=== PATIENT | female | born 1985 | race Caucasian/White ===

== ENCOUNTER 2020-03-25 00:10 | Emergency (ER) | payer MEDICAID, SELFPAY ==
--- NOTE | ~2020-03-25 | CT_ITS ---
EXAMINATIONS: CT HEAD WITHOUT CONTRAST AND CT CERVICAL SPINE WITHOUT CONTRAST CLINICAL INFORMATION: Trauma. Head laceration. COMPARISON: None. TECHNIQUE: Contiguous helical images of the brain were obtained without IV contrast. Contiguous helical images of the cervical spine were obtained without IV contrast. Multiplanar reconstructions were performed. DLP: 1224 mGy-cm. FINDINGS: There are no pathologic extra-axial fluid collections. The lateral, third, fourth ventricles are nondilated and concordant with the appearance of the sulci. There is no evidence for acute intraparenchymal hemorrhage. There is cortical and subcortical low-attenuation within the right occipital lobe, best demonstrated on image 31/82. There is associated sulcal effacement. There is neither mass nor mass effect. There is no shift of midline structures. The paranasal sinuses and mastoid air cells are clear. There are no osseous lesions. There is a small subcutaneous soft tissue hematoma overlying the left occipital bone. The cervical vertebra are in normal alignment. Disc heights and vertebral heights are well-preserved. There are no fractures. There is no prevertebral soft tissue swelling. There is no cervical lymphadenopathy. The visualized lung apices are clear. CT/CT cervical spine wo con IMPRESSION: Cortical and subcortical low-attenuation within the right occipital lobe suspicious for an acute or subacute infarction. Consider correlation with MRI for further tissue characterization. The aforementioned was discussed with Dr. Young at 0135 hours. No evidence for acute injury to the cervical spine. Automated exposure control (Care Dose) Adjustment of the mA and/or kv according to patient size (this includes techniques or standardized protocols for targeted exams where dose is matched to indication / reason for exam; i.e. extremities or head).
--- NOTE | 2020-03-25 00:52 | ED.WOUNDLAC ---
HPI - Wound/Laceration General Chief Complaint: Wound/Laceration Stated Complaint: Fall/ Head Lac Time Seen by Provider: 03/25/20 01:02 Source: patient Mode of arrival: ambulatory Limitations: no limitations History of Present Illness HPI narrative: 34-year-old female with past medical history of chronic headaches presents with laceration to the back of her head. Patient was walking into her home up 3 steps, slipped on some ice and hit the back of her head on cement. She is unable to control the bleeding to the back of her head. Onset (ago): hour(s) (Within the hour of arrival) Location: scalp Place: home Patient tetanus UTD: No Context: accidental Associated symptoms: pain and nausea/vomiting Treatments prior to arrival: bandage Related Data Allergies Allergy/AdvReac Type Severity Reaction Status Date / Time No Known Allergies Allergy Verified 03/25/20 01:05 Review of Systems Review of Systems: Constitutional: No Fever, No Chills, positive headache ENT/Mouth: No Ear Pain, No Hoarseness, No sore throat Eyes: No Eye Pain, No Swelling, No Redness, No Foreign Body Cardiovascular: No Chest Pain, No SOB Respiratory: No Cough, No Dyspnea Gastrointestinal: Positive Nausea, No Vomiting, No Diarrhea, No abdominal Pain Genitourinary: No Dysuria, No Hematuria Musculoskeletal: positive joint pain, No Myalgias, No Joint Swelling Skin: Positive laceration to the mid occipital, No rash Neuro: No Weakness, No Numbness, No Paresthesias, No Loss of Consciousness, No Dizziness, No Headache Psych: No Anxiety/Panic, No Depression Heme/Lymph: no easy bruising, no Lymphadenopathy Endocrine: No Polyuria, No Polydipsia Yes all other systems are reviewed and are negative [facility] Past Medical History Attestation statement: The following information was validated with the patient. Source: old records reviewed Social History Social History Advance Directives: No Advance Directives Information Provided: No Physical Exam Vital Signs: Vital Signs: Last Vital Signs Temp 98.9 F 03/25/20 01:06 Pulse 66 03/25/20 01:06 Resp 18 03/25/20 01:06 BP 144/81 H 03/25/20 01:06 Pulse Ox 100 03/25/20 01:06 Body Mass Index 32.9 Appearance: Alert. Oriented X3. Moderate distress. Head: 2 cm laceration to the occipital scalp, 6 cm contusion hematoma noted No Mckinney signs noted. No raccoon eyes noted Eyes: PERRLA. EOMI. Conjunctiva and sclera normal. Eyelids normal. No pain on extraocular movement ENT: TM's Normal. Pharynx normal. Uvula midline. Moist mucous membranes. No trismus noted. No drooling noted. No muffled voice noted. Neck: Normal inspection. Neck supple. No adenopathy. Thyroid Normal. No meningeal signs. No neck mass noted. CVS: Normal heart rate and rhythm. Heart sound normal. No murmurs noted. Pulses equal to all extremities. Respiratory: No respiratory distress. Painless inspiration. Breath sounds normal. No wheezes/rales/rhonchi noted. Chest nontender. No accessory muscle usage noted or decreased air movement noted. Abdomen: Soft and nontender. Bowel sounds normal in all 4 quadrants. No distention noted. No organomegaly noted. No visible injury noted. Back: No CVA tenderness. Full range of motion noted. Skin: Skin warm and dry. Normal skin color. 2 cm scalp laceration to the occipital Extremities: No lower extremity edema. Extremities exhibit normal range of motion. Extremities nontender. Neuro: cranial nerves 2-12 intact, no focal neural deficits, strength 5/5 to all extremities, No motor deficit. No sensory deficit. Reflexes normal. Course Course Course Narrative: 34-year-old female presents with injury sustained from a slip and fall on the ice. Patient taken to CT scan for imaging immediately upon my evaluation. 2 cm lac to the occipital scalp still bleeding, arterial bleed noted. 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 We did staple the wound shut with 5 eric, radiology called noting a right occipital lobe acute versus subacute infarct and radiology suggests MRI. [place] were removed, sutures placed, please see procedure note for full details. Prepped and draped in sterile fashion, patient tolerated procedure well. Call out to Neurology. At 2:[address] Montano call back to discuss this case, stated that he would follow in the morning. Patient is not a tPA candidate. Discussion with patient regarding plan of care, patient stated that she cannot stay overnight that she has no and take care of her children. Patient will be discharged against medical advice. Patient did understand the risks of leaving without proper medical care which include and serious possibly irreversible consequences. Procedures Laceration Laceration 1: Site: scalp Side (If applicable): right Size (cm): 2 Description: linear Depth: involves muscle layer Local Anesthetic: lidocaine 2% and with epi Amount of anesthesia used (mL): 6 Pre-repair: wound explored and irrigated extensively Skin layer closed with: nylon Size (cm): 3-0 Number of sutures: 4 Technique: simple, interrupted MDM - Wound/Laceration MDM Narrative Medical decision making narrative: Subdural hematoma epidural hematoma Differential Diagnosis Differential diagnosis: Likely laceration Medical Records Attestation: I reviewed the patient's medical records. Lab Data Attestation: I reviewed the patient's lab results. Imaging Data CT head neck: Attestation: I personally reviewed and interpreted this imaging study as follows: Radiologist's impression: EXAMINATIONS: CT HEAD WITHOUT CONTRAST AND CT CERVICAL SPINE WITHOUT CONTRAST CLINICAL INFORMATION: Trauma. Head laceration. COMPARISON: None. TECHNIQUE: Contiguous helical images of the brain were obtained without IV contrast. Contiguous helical images of the cervical spine were obtained without IV contrast. Multiplanar reconstructions were performed. DLP: 1224 mGy-cm. FINDINGS: There are no pathologic extra-axial fluid collections. The lateral, third, fourth ventricles are nondilated and concordant with the appearance of the sulci. There is no evidence for acute intraparenchymal hemorrhage. There is cortical and subcortical low-attenuation within the right occipital lobe, best demonstrated on image 31/82. There is associated sulcal effacement. There is neither mass nor mass effect. There is no shift of midline structures. The paranasal sinuses and mastoid air cells are clear. There are no osseous lesions. There is a small subcutaneous soft tissue hematoma overlying the left occipital bone. The cervical vertebra are in normal alignment. Disc heights and vertebral heights are well-preserved. There are no fractures. There is no prevertebral soft tissue swelling. There is no cervical lymphadenopathy. The visualized lung apices are clear. CT/CT head/brain wo con IMPRESSION: Cortical and subcortical low-attenuation within the right occipital lobe suspicious for an acute or subacute infarction. Consider correlation with MRI for further tissue characterization. The aforementioned was discussed with Dr. Young at 0135 hours. No evidence for acute injury to the cervical spine. Automated exposure control (Care Dose) Adjustment of the mA and/or kv according to patient size (this includes techniques or standardized protocols for targeted exams where dose is matched to indication / reason for exam; i.e. extremities or head). Discharge Plan Discharge Clinical Impression: Laceration Stroke Qualifiers: CVA mechanism: other Qualified Code(s): I63.89 - Other cerebral infarction Acute head trauma Qualifiers: Encounter type: initial encounter Qualified Code(s): S09.90XA - Unspecified injury of head, initial encounter Patient Disposition: Left Against Medical Advice Instructions: Laceration (ED), Concussion (ED), Head Injury (ED), Stroke (DC), Head Laceration (ED) Additional Instructions: You were evaluated for laceration to the back of your head. CT scan indicates suspicion of right occipital stroke. Neurologist recommends that you should be admitted to the hospital and have an MRI in the morning. You are leaving against medical advice. You are welcome to return at any time. We strongly urge you to follow medical advice. Thank you for choosing this emergency department for evaluation. Return to the emergency department for any new, concerning, or worsening symptoms. Stand Alone Forms: Against Medical Advice
[2020-03-25 01:06] VITALS: BP 144/81; PULSE 66; RESP 18; TEMP 37.2; O2SAT 100; BMI 32.9
[2020-03-25] MEDS: Morphine Sulfate 4 MG/ML CARTRIDGE IM (01:24)
[2020-03-25] MEDS: Ketorolac Tromethamine 60 MG/2 ML VIAL IM (01:34)
--- NOTE | 2020-03-25 01:40 | PC.NURSE ---
HEMATOMA TO BACK OF HEAD 6.2CM WIDE AT THIS TIME.
[2020-03-25] MEDS: Lidocaine HCl 2%/Epi 1:100,000 20 ML VIAL INFILTRATI (01:49)
--- NOTE | 2020-03-25 01:50 | PC.NURSE ---
WOUND INFILTRATED WITH LIDOCAINE WITH EPI BY RIANA MILLIGAN. PEDRO REMOVED NEEDED PER MRI. RIANA MILLIGAN WILL PLACE SUTURES AFTER PEDRO REMOVED.
[2020-03-25 02:00] VITALS: RESP 18
[2020-03-25 02:42] VITALS: BP 128/76; PULSE 60; RESP 18; TEMP 36.5; O2SAT 100
== END 2020-03-25 03:22 | disposition left against medical advice (07) ==
PROVIDERS: Emergency Provider Emergency Medicine
DX: S01.01XA Laceration without foreign body of scalp, initial encounter (principal); I63.89 Other cerebral infarction; G44.309 Post-traumatic headache, unspecified, not intractable; W00.0XXA Fall on same level due to ice and snow, initial encounter; Y93.29 Activity, other involving ice and snow; Y93.01 Activity, walking, marching and hiking; Y92.9 Unspecified place or not applicable; Y99.9 Unspecified external cause status; Z23 Encounter for immunization
CPT/HCPCS: 12001; 70450; 72125; 90471; 90715; 96372; 99284; J1885; J2270

== ENCOUNTER 2020-03-27 16:16 | Emergency (ER) | payer MEDICAID, SELFPAY ==
--- NOTE | ~2020-03-27 | MR_ITS ---
EXAMINATION: BRAIN MRI WITHOUT CONTRAST CLINICAL INFORMATION: Evaluate for acute versus subacute infarct. COMPARISON: CT scan of the head 03/25/2020. TECHNIQUE: Multiplanar MR imaging of the brain was performed without contrast. FINDINGS: There is no acute territorial infarct. No pathological magnetic susceptibility artifact. Intracranial vascular flow voids are maintained. There is no intracranial mass effect or midline shift. No abnormal extra-axial collection. Lateral and third ventricles are normal. No hydrocephalus. Midline structures including the cervicomedullary junction are normal. No acute bone marrow signal changes. There is no mastoid middle ear effusion. No active paranasal sinus disease. Globes and orbits are symmetric. MR/MR head/brain wo con IMPRESSION: Normal brain MRI.
[2020-03-27 16:21] VITALS: BP 139/75; PULSE 66; RESP 18; TEMP 36.7; O2SAT 99; BMI 34.2
[2020-03-27 17:41] VITALS: BP 109/44; PULSE 55; RESP 18; O2SAT 100
--- NOTE | 2020-03-27 17:46 | ED.GENADULT ---
HPI - General Adult General Chief complaint: General Medical Stated complaint: Head Injury Time Seen by Provider: 03/27/20 17:07 Source: patient Mode of arrival: ambulatory History of Present Illness HPI narrative: 34-year-old female with a recent medical history of a mechanical fall with head trauma S/P posterior scalp laceration, evaluated in our ED on 03/25 presenting to the ED for brain MRI secondary to CT on 03/25 concerning for acute versus subacute infarct. MRI was recommended at that time however patient left AMA. Today patient reports increased/worsening headaches, and nausea. Also reports feeling off balance. Denies new or/recent falls or trauma, visual change/loss, vomiting, numbness, tingling, weakness. Denies taking anticoagulation Onset (ago): day(s) Related Data Allergies Allergy/AdvReac Type Severity Reaction Status Date / Time No Known Allergies Allergy Verified 03/25/20 01:05 Review of Systems Review of Systems: Constitutional: No Weight loss, No Fever Eyes: No Vision Changes Cardiovascular: No Chest Pain, No SOB Respiratory: No Cough Gastrointestinal: + Nausea, No Vomiting, No Abdominal pain Musculoskeletal: No joint pain, No Myalgias, No Joint Swelling Skin: No Skin Lesions, No rash Neuro: No Weakness, No Numbness, No Paresthesias, No Loss of Consciousness, + Headache, +off balance Yes all other systems are reviewed and are negative Neurologic: Denies Abnormal speech present [facility] Past Medical History Attestation statement: The following information was validated with the patient. Social History Social History Smoking Status: Current every day smoker Any prior treatment program specific to substance use: No Advance Directives: No Advance Directives Information Provided: Yes Physical Exam Vital Signs: Vital Signs: Last Vital Signs Temp 98.1 F 03/27/20 16:21 Pulse 55 03/27/20 17:41 Resp 18 03/27/20 17:41 BP 109/44 L 03/27/20 17:41 Pulse Ox 100 03/27/20 17:41 Body Mass Index 34.2 Const: General: cooperative, healthy appearing and comfortable Orientation/consciousness: patient oriented x3 Limitations: no limitations HENMT: Other: + palpable posterior scalp hematoma with sutures intact, tender to palpation Head: Yes scalp tenderness Ears: hearing grossly normal bilaterally General nose exam: Normal external nose present Face and sinus: Yes normal facial exam Eyes: General: appearance normal, both eyes and all related structures Pupils: Equal, round and reactive pupils present EOM: EOMs intact bilaterally Neck: Neck: Yes normal visual inspection, Yes no lymphadenopathy and Yes no meningeal signs Resp: Effort & Inspection: normal respiratory effort Cardio: Rate: regular rate GI: Inspection: Yes normal to inspection Palpation (GI): Soft to palpation Skin: Rashes: no rashes Neuro: General: patient oriented x3, gait normal, tone normal, moves all extremities, no meningeal signs, no focal motor deficits and CN's II-XI intact bilaterally Cranial nerves: Yes Equal, round and reactive pupils present Cognition (Neuro): normal cognition Speech: No Abnormal speech present Gait exam (Neuro): Normal gait present Motor exam (neuro): 5/5 motor strength present throughout and Pronator motor function not present Coordination: [id number] test normal and Romberg test negative Extrem: General: Yes normal to inspection NIH Stroke Scale Internal: Initial- Upon Arrival Level of Consciousness: Alert Level of Consciousness Questions: Answers both questions correctly Level of Consciousness Commands: Performs both tasks correctly Best Gaze: Normal Visual: No visual loss Facial Palsy: Normal Motor Arm (Right): No drift Motor Arm (Left): No drift Motor Leg (Right): No drift Motor Leg (Left): No drift Limb Ataxia: Absent Sensory: Normal Best Language: No aphasia Dysarthia: Normal Extinction and Inattention: No abnormality Score: 0 Course Course Course Narrative: -patient eloped the ED prior to MRI read results - [id number]--called listed number to inform of MRI results without answer MR head/brain wo con IMPRESSION: Normal brain MRI. Medical Decision Making [facility] Narrative Medical decision making narrative: 34-year-old female with a recent medical history of a mechanical fall with head trauma S/P posterior scalp laceration, evaluated in our ED on 03/25 presenting to the ED for brain MRI secondary to CT on 03/25 concerning for acute versus subacute infarct. On exam VSS, ED/well-appearing, no focal neuro deficits, NIHSS= 0. Imaging reviewed from prior visit. Will obtain MRI today Discharge Plan Discharge Clinical Impression: Headache Patient Disposition: Elopement Interventions: ED Discharge Assessment Last Done: 03/27/20 20:45 Discharge Date/Time: 03/27/20 20:45
--- NOTE | 2020-03-27 19:40 | PC.NURSE ---
UPON RETURNING FROM MRI, PATIENT APPEARED VERY ANXIOUS/AGITATED. KIERRA (PROPELLER LAYOUT WORKER) IN TO SEE PATIENT. PT REQUESTING TO LEAVE ED FOR SOME AIR . SECURITY AT BEDSIDE, ESCORTED PATIENT OUT OF ED, AND THEN ESCORTED BACK INTO ED. PT THEN CALLED THE CHARGE NURSE A BITCH. THIS RN ENTERED ROOM, PATIENT REFUSING TO MAKE EYE CONTACT WITH THIS RN, USING CELL PHONE, ASKING FOR WORK EXCUSE NOTE. THIS RN EXPLAINED THAT MRI RESULTS ARE PENDING, AND RESULTS WILL DETERMINE THE PLAN OF CARE FOR EITHER ADMISSION OR DISCHARGE. PATIENT STATED OH NO, I'M NOT STAYING. 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 I JUST THINK I SHOULDN'T BE ALLOWED TO WORK FOR MORE THAN A WEEK BECAUSE OF MY CONCUSSION, AND I WANT MY RESULTS . THIS INFORMATION RELAYED TO THERESA BUNN (PROVIDER). PT OTHERWISE DOES NOT APPEAR TO BE IN ANY ACUTE DISTRESS. WILL CONTINUE TO MONITOR.
== END 2020-03-27 20:45 | disposition left against medical advice (07) ==
PROVIDERS: Emergency Provider Emergency Medicine
DX: R51.9 Headache, unspecified (principal); R11.0 Nausea; F17.200 Nicotine dependence, unspecified, uncomplicated; Z71.6 Tobacco abuse counseling
CPT/HCPCS: 70551; 99284; 99285

== ENCOUNTER 2020-09-08 10:38 | Outpatient (REF) | payer MEDICAID, SELFPAY ==
[2020-09-08 14:35] LABS: CT PCR NOT DETECTED (Not Detect.); NG PCR NOT DETECTED (Not Detect.)
== END 2020-09-08 10:39 | disposition home or self-care (01) ==
LOC: HO.LAB 10:38
PROVIDERS: PCP Nurse Practitioner Primary Care; Visit Provider Obstetrics & Gynecology
DX: O26.891 Other specified pregnancy related conditions, first trimester (principal); A54.9 Gonococcal infection, unspecified; O99.331 Smoking (tobacco) complicating pregnancy, first trimester; O09.511 Supervision of elderly primigravida, first trimester
CPT/HCPCS: 87491; 87591; 99212

== ENCOUNTER 2020-09-11 11:33 | Outpatient (REF) | payer MEDICAID, SELFPAY ==
--- NOTE | ~2020-09-11 | US_ITS ---
EXAMINATION: ULTRASOUND OB LIMITED CLINICAL INFORMATION: Uncertain LMP. COMPARISON: None TECHNIQUE: Multiple limited 2-D grayscale and Doppler ultrasound images of the pelvis were obtained. FINDINGS: There is a single living intrauterine gestation in vertex presentation with a heart rate of 140 beats per minute. The placenta is anterior without previa. The amniotic fluid volume is qualitatively normal. The BPD measures 4.74 cm, head circumference 18.06 cm, abdominal circumference 15.78 cm, femur length 3.30 cm for an estimated average ultrasound age of 20 weeks, 5 days. US/US OB limited IMPRESSION: Single viable intrauterine gestation with estimated average ultrasound age of 20 weeks, 5 days.
== END 2020-09-11 11:34 | disposition home or self-care (01) ==
LOC: HO.HMGCX 11:33
PROVIDERS: PCP Nurse Practitioner Primary Care; Visit Provider Obstetrics & Gynecology
DX: Z34.91 Encounter for supervision of normal pregnancy, unspecified, first trimester (principal)
CPT/HCPCS: 76815

== ENCOUNTER → 2020-09-18 11:30 | Outpatient (BNVA) | payer MEDICAID, SELFPAY | PROVIDERS: PCP Nurse Practitioner Primary Care; Visit Provider Obstetrics & Gynecology ==

== ENCOUNTER 2020-09-19 13:04 | Outpatient (REF) | payer MEDICAID, SELFPAY ==
--- NOTE | ~2020-09-19 | US_ITS ---
EXAMINATION: US OBSTETRICAL CLINICAL INFORMATION: 34-year-old at 21.5 weeks of gestation Insufficient care AMA Screening for anomaly COMPARISON: 09/11/2020 TECHNIQUE: Real-time transabdominal ultrasound was performed using C1-5 megahertz transducer. FINDINGS: A single, active, fetus is seen in vertex presentation. The placenta is posterior without previa, and the amniotic fluid volume is wnl. MEASUREMENTS: 1. Biparietal Diameter: 5.0 cm; 21.2 wks 2. Occipital Frontal Diameter: 6.98 cm 3. Head Circumference: 19.6 cm; 21.6 wks 4. Abdominal Circumference: 16.8 cm; 21.6 wks 5. Femur Length: 3.6 cm; 21.4 wks 6. Humerus Length: 3.5 cm; 22.1 wks 7. Tibia Length: 3.1 cm; 21.3 wks 8. Ulna Length: 3.1 cm; 21.5 wks 9. Lateral ventricle: 0.5 cm 10. Cerebellum: 2.3 cm; 22.4 wks 11. Cisterna Magna: 0.71 cm 12. Nuchal Fold: 5.5 mm 13. Heart Rate: 135 beats per minute Rt ovary: normal Lt ovary: normal Cervical length 2.8 cm on T/A. GESTATIONAL AGE: 1. Established GA: 21.3 wks 2. GA from [facility]: 21.5 wks ESTIMATED DATE OF DELIVERY: 1. Established TOMMY: 01/27/2021 2. TOMMY from [facility]: 01/25/2021 ANATOMY: The visualized anatomy includes but not limited to: 1. Cranium: Normal 2. Intracranial anatomy: cavum septum pellucidi, lateral ventricles, choroid plexus, cerebellum, posterior fossa, third and fourth ventricles. 3. face: orbits, lip/palate, profile, nasal bone 4. Heart: four-chamber view of the heart, ventricular septum, foramen ovale, pulmonary vein, left and right outflow tracts, three-vessel view, 3 vessel trachea view, aortic and ductal arches, situs.. 5. Diaphragm: Normal 6. Abdominal wall: Normal 7. Cord Insertion: Normal 8. Spine: Cervical, thoracic, lumbar, sacral. 9. Stomach: Normal size and shape 10. Right Kidney: Normal 11. Left Kidney: Normal 12. 3 vessel cord: Normal 13. Upper extremity: Open hands, fifth digit. 14. Lower extremity: Tibia, fibula, bilateral feet. 15. Bladder: Normal 16. Genitalia: Male, patient aware US/US OB /maternal detail IMPRESSION: 1. Single, living, intrauterine with appropriate biometry. 2. Normal survey DISCUSSION: I reviewed today's ultrasound findings. We discussed the limitations of ultrasound in diagnosing aneuploidy and other congenital abnormalities. I reviewed the differences between screening test and diagnostic test. Amniocentesis was discussed and declined. She has not yet had the N IPT. She is undecided. She was informed that the baseline incidence of congenital abnormalities is approximately 3-5%. Not all these conditions are diagnosable in utero. RECOMMENDATIONS: Recommend the follow-up in approximately 6 weeks for an interval growth. (Not scheduled) Thank you for allowing me to participate in her care. Total time 30 minutes. The time spent was devoted to counseling the patient about the disease and diagnosis, coordinating care including reviewing her records, pertinent lab data and studies, as well as discussing diagnostic evaluation and workup, plan therapeutic interventions and future disposition of care. This includes any additional research needed to obtain further information in formulating the plan of care of this patient. This note was generated with a voice recognition program. Please excuse any errors which may have been overlooked during my review of this note. Sometimes these errors may affect the content or meaning of a given sentence.
== END 2020-09-19 13:05 | disposition home or self-care (01) ==
LOC: HO.US 13:04
PROVIDERS: Visit Provider Obstetrics & Gynecology
DX: Z36.89 Encounter for other specified antenatal screening (principal); Z36.3 Encounter for antenatal screening for malformations
CPT/HCPCS: 76811

== ENCOUNTER → 2020-10-01 14:10 | Outpatient (BNVA) | payer MEDICAID, SELFPAY | PROVIDERS: PCP Nurse Practitioner Primary Care; Visit Provider Advanced Practice Midwife | DX: O09.522 Supervision of elderly multigravida, second trimester (principal); O09.32 Supervision of pregnancy with insufficient antenatal care, second trimester; O99.342 Other mental disorders complicating pregnancy, second trimester; F41.9 Anxiety disorder, unspecified; O99.332 Smoking (tobacco) complicating pregnancy, second trimester; F17.200 Nicotine dependence, unspecified, uncomplicated; O99.322 Drug use complicating pregnancy, second trimester; F12.90 Cannabis use, unspecified, uncomplicated; Z3A.23 23 weeks gestation of pregnancy | CPT/HCPCS: 99212 ==

== ENCOUNTER 2020-11-20 15:09 | Outpatient (REF) | payer MEDICAID, SELFPAY ==
[2020-11-22 13:44] LABS: CT PCR NOT DETECTED (Not Detect.); NG PCR NOT DETECTED (Not Detect.)
[2020-11-23 14:33] LABS: BV Int Neg Control Negative (Negative); BV Int Pos Control Positive (Positive)
[2020-11-29 09:56] LABS: HPV 16 RNA NOT DETECTED (NOT DETECTED); HPV mRNA E6/E7 rflx Detected (Not Detected)
== END 2020-11-20 15:10 | disposition home or self-care (01) ==
LOC: HO.LAB 15:09
PROVIDERS: Visit Provider Advanced Practice Midwife
DX: O99.323 Drug use complicating pregnancy, third trimester (principal); F11.20 Opioid dependence, uncomplicated; O09.523 Supervision of elderly multigravida, third trimester; Z3A.30 30 weeks gestation of pregnancy; Z11.51 Encounter for screening for human papillomavirus (HPV); Z20.2 Contact with and (suspected) exposure to infections with a predominantly sexual mode of transmission
CPT/HCPCS: 81003; 87480; 87491; 87510; 87591; 87624; 87625; 87660; 88142; 99212

== ENCOUNTER 2020-11-21 16:04 | Outpatient (REF) | payer MEDICAID, SELFPAY ==
[2020-11-21 16:37] LABS: Hematocrit 33.9 % (37-47); Hemoglobin 11.3 g/dl (12.0-16.0); Mean Corpuscular HGB Conc 33.3 g/dl (31.0-35.0); Mean Corpuscular Hemoglobin 28.3 pg (27.0-33.0); Mean Corpuscular Volume 84.8 fL (80-98); Mean Platelet Volume 9.9 fL (9.4-12.3); Platelet Count 328 X10*3/uL (160-400); Red Cell Distribution Width 13.5 % (11.0-16.0); White Blood Count 10.9 X10*3/uL (4.8-10.8)
[2020-11-21 17:18] LABS: Syphilis Screen Nonreactive (Nonreactive)
[2020-11-21 18:22] LABS: Amphetamine Screen Urine Not Detected (Not Detect); Barbiturates, Urine Not Detected (Not Detect); Benzodiazepines Screen Urine Not Detected (Not Detect); Cannabinoid Screen Urine POSITIVE (Not Detect); Cocaine Screen Urine Not Detected (Not Detect); Fentanyl, urine POSITIVE (Not Detect); Opiate Screen Urine Not Detected (Not Detect); Phencyclidine Screen Urine Not Detected (Not Detect)
[2020-11-25 08:53] LABS: HBsAGNum1 0.18 S/CO (0.00-0.99); Hepatitis B Surface Antigen Negative (Negative)
[2020-11-25 08:57] LABS: HIV AB/AG Nonreactive (Nonreactive); HIV Num 1 0.07 S/CO (0.00-0.99); ~HepC Num1 0.07 S/CO (0.00-0.79); ~Hepatitis C Antibody Nonreactive (Nonreactive)
== END 2020-11-21 16:05 | disposition home or self-care (01) ==
LOC: HO.LAB 16:04
PROVIDERS: PCP Nurse Practitioner Primary Care; Visit Provider Advanced Practice Midwife
DX: O09.529 Supervision of elderly multigravida, unspecified trimester (principal)
CPT/HCPCS: 80307; 85027; 86762; 86780; 86787; 86803; 86850; 86900; 86901; 87086; 87340; 87389

== ENCOUNTER 2020-12-05 14:33 | Outpatient (REF) | payer MEDICAID, SELFPAY ==
--- NOTE | ~2020-12-05 | US_ITS ---
EXAMINATION: OBSTETRICAL ULTRASOUND, Follow up HISTORY: 35-year-old at 32.3 weeks of gestation Size less than dates AMA COMPARISON: 09/19/2020 TECHNIQUE: Real time transabdominal imaging with color and M-mode Doppler. PRESENTATION: Vertex PLACENTA LOCATION: Posterior without previa AMNIOTIC FLUID: CT 12 cm MEASUREMENTS: 1. Biparietal Diameter: 7.9 cm; 31.5 wks 2. Head Circumference: 29.97 cm; 33.2 wks 3. Abdominal Circumference: 27.1 cm; 31.2 wks 4. Femur Length: 5.8 cm; 30.3 wks 5. Heart Rate: 122 beats per minute WEIGHT: EFW: 1710 grams (3 lbs 12 oz) -- 10 %. BIOPHYSICAL PROFILE: Motion: 2 Tone: 2 Breathin Amniotic Fluid: 2 Total score: 8/8 UA Doppler: SD 3.2 GESTATIONAL AGE: 1. Established GA: 32.3 wks 2. GA from [facility]: 31.5 wks ESTIMATED DATE OF DELIVERY: 1. Established TOMMY: 01/27/2021 2. TOMMY from [facility]: 02/01/2021 US/US OB velocimetry umbilical ar IMPRESSION: 1. A single active fetus is in vertex presentation. 2. Size equals dates, EFW corresponds to 10th percentile 3. Normal BPP and amniotic fluid volume 4. Normal umbilical artery SD ratio I reviewed today's findings and informed her that the EFW corresponds to approximately 10th percentile for this gestational age. We discussed the limitations of estimating weights. In addition we reviewed the clinical implications of the estimated weight percentile ranking. In general majority of fetuses whose EFW is between 5-10th percentile are constitutionally small fetuses who are growing to their full genetic potential. Suggest an interval growth evaluation in approximately 3 weeks (scheduled). Thank you very much for this referral. Total time 30 minutes. The time spent was devoted to counseling the patient about the disease and diagnosis, coordinating care including reviewing her records, pertinent lab data and studies, as well as discussing diagnostic evaluation and workup, plan therapeutic interventions and future disposition of care. This includes any additional research needed to obtain further information in formulating the plan of care of this patient. This note was generated with a voice recognition program. Please excuse any errors which may have been overlooked during my review of this note. Sometimes these errors may affect the content or meaning of a given sentence.
== END 2020-12-05 14:34 | disposition home or self-care (01) ==
LOC: HO.US 14:33
PROVIDERS: Visit Provider Advanced Practice Midwife
DX: O99.322 Drug use complicating pregnancy, second trimester (principal); Z36.89 Encounter for other specified antenatal screening
CPT/HCPCS: 76816; 76820

== ENCOUNTER → 2020-12-10 14:58 | Outpatient (BNVA) | payer MEDICAID, SELFPAY | PROVIDERS: Visit Provider Advanced Practice Midwife | DX: O09.523 Supervision of elderly multigravida, third trimester (principal); O36.5930 Maternal care for other known or suspected poor fetal growth, third trimester, not applicable or unspecified; O36.0130 Maternal care for anti-D [Rh] antibodies, third trimester, not applicable or unspecified; Z67.91 Unspecified blood type, Rh negative; O09.33 Supervision of pregnancy with insufficient antenatal care, third trimester; O99.323 Drug use complicating pregnancy, third trimester; F12.20 Cannabis dependence, uncomplicated; F11.20 Opioid dependence, uncomplicated; O99.333 Smoking (tobacco) complicating pregnancy, third trimester; F17.210 Nicotine dependence, cigarettes, uncomplicated; Z3A.33 33 weeks gestation of pregnancy; Z79.899 Other long term (current) drug therapy; Z29.13 Encounter for prophylactic Rho(D) immune globulin | CPT/HCPCS: 99212 ==

== ENCOUNTER 2020-12-17 13:44 | Outpatient (REF) | payer MEDICAID, SELFPAY ==
[2020-12-17 14:39] LABS: Amphetamine Screen Urine Not Detected (Not Detect); Barbiturates, Urine Not Detected (Not Detect); Benzodiazepines Screen Urine Not Detected (Not Detect); Cocaine Screen Urine Not Detected (Not Detect); Opiate Screen Urine Not Detected (Not Detect); Phencyclidine Screen Urine Not Detected (Not Detect)
[2020-12-17 15:29] LABS: Hemoglobin 11.1 g/dl (12.0-16.0); Mean Corpuscular HGB Conc 32.6 g/dl (31.0-35.0); Mean Corpuscular Hemoglobin 28.2 pg (27.0-33.0); Mean Corpuscular Volume 86.3 fL (80.0-98.0); Mean Platelet Volume 10.8 fL (9.4-12.3); Platelet Count 249 X10*3/uL (160-400); Red Blood Count 3.94 X10*6/uL (4.20-5.50); Red Cell Distribution Width 13.8 % (11.0-16.0); White Blood Count 8.4 X10*3/uL (4.8-10.8)
[2020-12-17 16:02] LABS: Glucose 1 Hour PP 50gm Dose 71 mg/dL (60-140)
[2020-12-17 16:27] LABS: Syphilis Screen Nonreactive (Nonreactive)
== END 2020-12-17 13:45 | disposition home or self-care (01) ==
LOC: HO.LAB 13:44
PROVIDERS: Visit Provider Advanced Practice Midwife
DX: O36.5990 Maternal care for other known or suspected poor fetal growth, unspecified trimester, not applicable or unspecified (principal); O99.320 Drug use complicating pregnancy, unspecified trimester; F19.90 Other psychoactive substance use, unspecified, uncomplicated; Z3A.00 Weeks of gestation of pregnancy not specified
CPT/HCPCS: 80307; 85027; 86780; 96372

== ENCOUNTER 2020-12-26 14:02 | Outpatient (REF) | payer MEDICAID, SELFPAY ==
--- NOTE | ~2020-12-26 | US_ITS ---
EXAMINATION: OBSTETRICAL ULTRASOUND, Follow up HISTORY: 35-year-old at 35.3 weeks of gestation Size date discrepancy AMA COMPARISON: 12/05/2020 TECHNIQUE: Real time transabdominal imaging with color and M-mode Doppler. PRESENTATION: Vertex PLACENTA LOCATION: Posterior without previa AMNIOTIC FLUID: CT 11.2 cm MEASUREMENTS: 1. Biparietal Diameter: 8.2 cm; 33.1 wks 2. Head Circumference: 31.4 cm; 35.2 wks 3. Abdominal Circumference: 31.1 cm; 35.1 wks 4. Femur Length: 6.4 cm; 33.1 wks 5. Heart Rate: 136 beats per minute WEIGHT: EFW: 2405 grams (5 lbs 5 oz) -- 20 %. BIOPHYSICAL PROFILE: Motion: 2 Tone: 2 Breathin Amniotic Fluid: 2 Total score: 8/8 UA Doppler: SD 2.7. GESTATIONAL AGE: 1. Established GA: 35.3 wks 2. GA from AUA: 34.2 wks ESTIMATED DATE OF DELIVERY: 1. Established TOMMY: 01/27/2021 2. TOMMY from AUA: 02/04/2021 US/US OB follow up IMPRESSION: 1. A single active fetus is in vertex presentation 2. Size equals dates 3. Reassuring BPP 4. Normal SD subumbilical UA I reassured the patient that the growth has been appropriate. In addition the testing is reassuring. A follow-up has been scheduled in 3 weeks for AMA. Thank you very much for this referral. Total time 20 minutes. The time spent was devoted to counseling the patient about the disease and diagnosis, coordinating care including reviewing her records, pertinent lab data and studies, as well as discussing diagnostic evaluation and workup, plan therapeutic interventions and future disposition of care. This includes any additional research needed to obtain further information in formulating the plan of care of this patient. This note was generated with a voice recognition program. Please excuse any errors which may have been overlooked during my review of this note. Sometimes these errors may affect the content or meaning of a given sentence.
--- NOTE | ~2020-12-26 | US_ITS ---
EXAMINATION: OBSTETRICAL ULTRASOUND, Follow up HISTORY: 35-year-old at 35.3 weeks of gestation Size date discrepancy AMA COMPARISON: 12/05/2020 TECHNIQUE: Real time transabdominal imaging with color and M-mode Doppler. PRESENTATION: Vertex PLACENTA LOCATION: Posterior without previa AMNIOTIC FLUID: CT 11.2 cm MEASUREMENTS: 1. Biparietal Diameter: 8.2 cm; 33.1 wks 2. Head Circumference: 31.4 cm; 35.2 wks 3. Abdominal Circumference: 31.1 cm; 35.1 wks 4. Femur Length: 6.4 cm; 33.1 wks 5. Heart Rate: 136 beats per minute WEIGHT: EFW: 2405 grams (5 lbs 5 oz) -- 20 %. BIOPHYSICAL PROFILE: Motion: 2 Tone: 2 Breathin Amniotic Fluid: 2 Total score: 8/8 UA Doppler: SD 2.7. GESTATIONAL AGE: 1. Established GA: 35.3 wks 2. GA from AUA: 34.2 wks ESTIMATED DATE OF DELIVERY: 1. Established TOMMY: 01/27/2021 2. TOMMY from AUA: 02/04/2021 US/US OB velocimetry umbilical ar IMPRESSION: 1. A single active fetus is in vertex presentation 2. Size equals dates 3. Reassuring BPP 4. Normal SD subumbilical UA I reassured the patient that the growth has been appropriate. In addition the testing is reassuring. A follow-up has been scheduled in 3 weeks for AMA. Thank you very much for this referral. Total time 20 minutes. The time spent was devoted to counseling the patient about the disease and diagnosis, coordinating care including reviewing her records, pertinent lab data and studies, as well as discussing diagnostic evaluation and workup, plan therapeutic interventions and future disposition of care. This includes any additional research needed to obtain further information in formulating the plan of care of this patient. This note was generated with a voice recognition program. Please excuse any errors which may have been overlooked during my review of this note. Sometimes these errors may affect the content or meaning of a given sentence.
== END 2020-12-26 14:03 | disposition home or self-care (01) ==
LOC: HO.US 14:02
PROVIDERS: Visit Provider Advanced Practice Midwife
DX: O36.5930 Maternal care for other known or suspected poor fetal growth, third trimester, not applicable or unspecified (principal); O99.323 Drug use complicating pregnancy, third trimester; O36.5990 Maternal care for other known or suspected poor fetal growth, unspecified trimester, not applicable or unspecified; O99.333 Smoking (tobacco) complicating pregnancy, third trimester; F17.200 Nicotine dependence, unspecified, uncomplicated; Z3A.35 35 weeks gestation of pregnancy
CPT/HCPCS: 76816; 76820

== ENCOUNTER 2021-01-05 14:03 | Outpatient (REF) | payer MEDICAID, SELFPAY ==
[2021-01-06 05:32] LABS: CT PCR NOT DETECTED (Not Detect.); NG PCR NOT DETECTED (Not Detect.)
[2021-01-06 09:22] LABS: BV Int Neg Control Negative (Negative); BV Int Pos Control Positive (Positive)
== END 2021-01-05 14:04 | disposition home or self-care (01) ==
LOC: HO.LAB 14:03
PROVIDERS: Visit Provider Advanced Practice Midwife
DX: O36.5930 Maternal care for other known or suspected poor fetal growth, third trimester, not applicable or unspecified (principal); O26.893 Other specified pregnancy related conditions, third trimester; F17.200 Nicotine dependence, unspecified, uncomplicated; Z67.91 Unspecified blood type, Rh negative; Z20.2 Contact with and (suspected) exposure to infections with a predominantly sexual mode of transmission
CPT/HCPCS: 81003; 87081; 87147; 87480; 87491; 87510; 87591; 87660; 99212

== ENCOUNTER 2021-02-11 12:04 | Outpatient (REF) | payer MEDICAID, SELFPAY ==
[2021-02-12 04:52] LABS: CT PCR NOT DETECTED (Not Detect.); NG PCR NOT DETECTED (Not Detect.)
[2021-02-12 09:43] LABS: BV Int Neg Control Negative (Negative); BV Int Pos Control Positive (Positive)
== END 2021-02-11 12:05 | disposition home or self-care (01) ==
LOC: HO.LAB 12:04
PROVIDERS: Visit Provider Advanced Practice Midwife
DX: Z39.2 Encounter for routine postpartum follow-up (principal); Z30.09 Encounter for other general counseling and advice on contraception; R30.0 Dysuria; Z72.0 Tobacco use; N89.8 Other specified noninflammatory disorders of vagina; Z20.2 Contact with and (suspected) exposure to infections with a predominantly sexual mode of transmission
CPT/HCPCS: 81003; 87480; 87491; 87510; 87591; 87660; 99212

== ENCOUNTER 2024-04-09 14:56 | Outpatient (REF) | payer MEDICAID, SELFPAY ==
[2024-04-09 16:10] LABS: MANUAL DIFF FLAG NO
[2024-04-09 16:16] LABS: Basophils Absolute Auto 0.1 X10*3/uL (0.0-0.2); Basophils Percent Auto 1.1 % (0-2); Eosinophils Absolute Auto 0.3 X10*3/uL (0.0-0.4); Eosinophils Percent Auto 5.2 % (0-4); Hematocrit 37.2 % (37.0-47.0); Hemoglobin 11.9 g/dl (12.0-16.0); Imm Gran Abs Auto 0.01 X10*3/uL (0.00-0.03); Imm Gran Pct Auto 0.2 % (0.0-0.4); Lymphocytes Absolute Auto 1.1 X10*3/uL (1.2-4.9); Lymphocytes Percent Auto 18.4 % (20-40); Mean Corpuscular Hemoglobin 27.5 pg (27.0-33.0); Mean Corpuscular Volume 86.1 fL (80.0-98.0); Mean Platelet Volume 10.3 fL (9.4-12.3); Monocytes Percent Auto 15.7 % (2-11); Neutrophils Absolute Auto 3.6 x10*3/uL (2.0-8.3); Neutrophils Percent Auto 59.4 % (45-73); Platelet Count 241 X10*3/uL (160-400); Red Blood Count 4.32 X10*6/uL (4.20-5.50); Red Cell Distribution Width 14.7 % (11.0-16.0); White Blood Count 6.1 X10*3/uL (4.8-10.8)
[2024-04-09 16:17] LABS: Basophils Absolute Auto 0.1 X10*3/uL (0.0-0.2); Basophils Percent Auto 1.4 % (0-2); Eosinophils Absolute Auto 0.3 X10*3/uL (0.0-0.4); Eosinophils Percent Auto 5.6 % (0-4); Hematocrit 37.6 % (37.0-47.0); Imm Gran Abs Auto 0.02 X10*3/uL (0.00-0.03); Imm Gran Pct Auto 0.3 % (0.0-0.4); Lymphocytes Absolute Auto 1.1 X10*3/uL (1.2-4.9); Lymphocytes Percent Auto 18.6 % (20-40); Mean Corpuscular HGB Conc 31.9 g/dl (31.0-35.0); Mean Corpuscular Hemoglobin 27.5 pg (27.0-33.0); Mean Platelet Volume 10.2 fL (9.4-12.3); Monocytes Absolute Auto 0.9 X10*3/uL (0.1-1.2); Monocytes Percent Auto 15.2 % (2-11); Neutrophils Absolute Auto 3.4 x10*3/uL (2.0-8.3); Neutrophils Percent Auto 58.9 % (45-73); Platelet Count 244 X10*3/uL (160-400); Red Blood Count 4.37 X10*6/uL (4.20-5.50); Red Cell Distribution Width 14.7 % (11.0-16.0); White Blood Count 5.9 X10*3/uL (4.8-10.8)
--- OUTSIDE RECORDS SUMMARY | 2024-04-09 17:16 | XMS_ITS | Clinical Summary ---
Author Organization [employer] [facility] ity Address [address] [place] [address] Care Team Providers Care Technical Manager [employer] Name Role Phone Unavailable Primary Care Provider Unavailabl e Medical History Medical History Date Comments Gonorrhea DX:Gonorrhea Opioid dependence (CMS/HCC) DX:O pioid dependence (HCC) Social History Tobacco Use Types Packs/Day Years Used Date Smoking Tobacco: Every Day Smokeless Tobacco: Never Alcohol Use Standard Drinks/Week Comments Not Currently 0 (1 standard drink = 0.6 oz pur e alcohol) Comments Unknown Sex and Gender Information Value Date Recorded Sex Assigned at Not on file Legal Sex Female 5:07 AM EST Gender Identity Not on file Sexual Orientation Not on file Obstetrics History Plan of Treatment Health Maintenance Due Date Last Done Comments DTaP,Tdap,and Td Vaccines (1 - Tdap) 10/24/2003 Hepatitis B Vaccines (1 of 3 - 19+ 3-dose series) 10/24/2003 Pneumococcal Vaccine: Pediat rics (0 to 5 Years) and At-Risk Patients (6 to 64 Years) (1 of 2 - PCV) 10/24/2003 Cervical Cancer Screening: P ap Smear 2005 Depression Screening 01/17/2022 HIV Screening 01/17/2022 Hepatitis C Screening 01/17/2022 Social Influencers of Health Screening 01/17/2022 COVID-19 Vaccine ( - 2023-2 5 season) 2023 Influenza Vaccine (#1) 2023 HIB Vaccines Aged Out No longer eligi ble based on patient's age to complete this topic HPV Vaccines Aged Out No longer eligi ble based on patient's age to complete this topic Hepatitis A Vaccines Aged Out No long er eligible based on patient's age to complete this topic IPV Vaccines Aged Out No longer eligi ble based on patient's age to complete this topic MMR Vaccines Aged Out No longer eligi ble based on patient's age to complete this topic Meningococcal ACWY Vaccine Aged Out N o longer eligible based on patient's age to complete this topic Meningococcal B Vacine Aged Out No lo nger eligible based on patient's age to complete this topic RSV Immunization Patients Un arthur 20 months Aged Out No longer eligible b ased on patient's age to complete this topic Varicella Vaccines Aged Out No longer eligible based on patient's age to complete this topic
[2024-04-09 17:21] LABS: Alanine Aminotransferase 21 U/L (0-31); Albumin Level 3.9 g/dL (3.5-5.0); Anion Gap 9 (12-20); Aspartate Amino Transferase 24 U/L (5-31); Bilirubin Total 0.4 mg/dL (0.0-1.0); Blood Urea Nitrogen 11 mg/dL (9-16); Calcium 8.7 mg/dL (8.4-10.2); Carbon Dioxide 27 mmol/L (22-29); Chloride 107 mmol/L (96-108); Estimated Glomerular Filt Rate > 60; Glucose Random 81 mg/dL (60-115); Potassium 3.9 mmol/L (3.3-5.1); Sodium 139 mmol/L (135-145); Total Protein 7.6 g/dL (6.5-8.0)
[2024-04-09 17:36] LABS: Alanine Aminotransferase 17 U/L (0-31); Albumin Level 3.9 g/dL (3.5-5.0); Anion Gap 10 (12-20); Aspartate Amino Transferase 26 U/L (5-31); Bilirubin Total 0.3 mg/dL (0.0-1.0); Blood Urea Nitrogen 11 mg/dL (9-16); Calcium 8.7 mg/dL (8.4-10.2); Carbon Dioxide 26 mmol/L (22-29); Chloride 108 mmol/L (96-108); Cholesterol 139 mg/dL (<200); Estimated Glomerular Filt Rate > 60; Glucose Random 82 mg/dL (60-115); HDL Cholesterol 51 mg/dL (>40); LDL Cholesterol Calculated 78 mg/dL (<100); Sodium 140 mmol/L (135-145); TSH reflex Free T4 0.57 uIU/mL (0.32-4.0); Total Protein 7.5 g/dL (6.5-8.0); Triglycerides 54 mg/dL (<150); Vitamin D 25-OH Total 36.4 ng/mL (>30)
[2024-04-09 17:37] LABS: TSH reflex Free T4 0.56 uIU/mL (0.32-4.0)
[2024-04-09 17:54] LABS: Alkaline Phosphatase 73 U/L (39-117)
[2024-04-09 17:56] LABS: Alkaline Phosphatase 72 U/L (39-117)
[2024-04-09 20:31] LABS: Reflex LDLD? No
[2024-04-10 08:46] LABS: HBS Num1 13.12 mIU/mL (0-7.99); HBsAGNum1 0.25 S/CO (0.00-0.99); HIV AB/AG Nonreactive (Nonreactive); HIV Num 1 0.07 S/CO (0.00-0.99); Hepatitis B Surface Antigen Negative (Negative); ~HepC Num1 0.15 S/CO (0.00-0.79); ~Hepatitis B Surface Antibody REACTIVE (Nonreactive); ~Hepatitis C Antibody Nonreactive (Nonreactive)
[2024-04-10 14:26] LABS: CT PCR NOT DETECTED (Not Detect.); NG PCR NOT DETECTED (Not Detect.)
[2024-04-11 09:58] LABS: RPR Rapid Plasma Reagin NON-REACTIVE (NON-REACTIVE)
== END 2024-04-09 14:57 | disposition home or self-care (01) ==
LOC: HO.HHCL 14:56
PROVIDERS: Internal Medicine; Visit Provider Internal Medicine Geriatric Medicine
DX: Z00.00 Encounter for general adult medical examination without abnormal findings (principal); Z11.3 Encounter for screening for infections with a predominantly sexual mode of transmission; Z11.4 Encounter for screening for human immunodeficiency virus [HIV]; R63.5 Abnormal weight gain; R03.0 Elevated blood-pressure reading, without diagnosis of hypertension; F33.1 Major depressive disorder, recurrent, moderate; F17.200 Nicotine dependence, unspecified, uncomplicated
CPT/HCPCS: 36415; 80053; 80061; 82306; 84443; 85025; 86592; 86706; 86803; 87340; 87389; 87491; 87591

== ENCOUNTER 2024-04-17 | Outpatient (REF) | payer MEDICAID, SELFPAY ==
--- OUTSIDE RECORDS SUMMARY | 2024-04-18 14:23 | XMS_ITS | Encounter Summary ---
Author Organization [employer] Address [address] [place] [address] Care Team Providers Care Sales Account Executive Name Role Phone Lars Hay Unavailable Unavailable Deniz Hay RN Unavailable [phone] Name, Triston MCCLELLAND Primary Care Provider [phone] Encounter Details Date Type Department Care Team (Latest Contact Info) Description 04/17/2024 Travel Social History Tobacco Use Types Packs/Day Years Used Date Smoking Tobacco: Every Day Cigarettes 0.5 22.2 Started: 2002 Smokeless Tobacco: Never Alcohol Use Standard Drinks/Week Comments Not Currently 0 (1 standard drink = 0.6 oz pur e alcohol) rare Depression Answer Date Recorded Patient Health Questionnaire-9 Score 8 04/09/2024 Patient Health Questionnaire-9 Score 8 04/09/2024 Last PHQ-9: Questionnaire Data Not on file 0 04/09/2024 Housing Stability Answer Date Recorded What is your housing situation today? I have kimberlyn navarrete 03/29/[address] you li ve. Do you have problems with any of the following? None of the above 03/29/2024 Food Insecurity Answer Date Recorded Within the past 12 months, y ou worried that your food would run out before you got money to buy more: Never True 09/27/2023 Within the past 12 months,th e food you bought just didn't last and you didn't have enough money to get more: Never True Transportation Answer Date Recorded In the past 12 months, has l ack of transportation kept you from medical appts, meetings, work or from getting things needed for daily living? Yes, it has kept me from medical appointments or getting medications. 04/09/2024 Utilities Answer Date Recorded In the past 12 months, has t he electric, gas, oil or water company threatened to shut off services in your home? Yes 04/09/2024 Depression Answer Date Recorded Patient Health Questionnaire-2 Score 2 04/09/2024 Internet Access Answer Date Recorded Internet Access Q1 Yes 10/17/2023 Internet Access Q2 Not on file 10/17/2023 Comments No Sex and Gender Information Value Date Recorded Sex Assigned at Female 12/14/2021 10:15 AM EDT Legal Sex Female 10:15 AM EDT Gender Identity Female 12/14/2021 10:15 AM EDT Sexual Orientation Choose not to disclose 2021 10:15 AM EDT documented as of this encounter Plan of Treatment Upcoming Encounters Date Type Department Care Team (Late st Contact Info) Description 07/10/2024 3:15 PM EDT Office Visit [facility] [address] [place] [address] Name, MD Triston [address] [place] [phone] documented as of this encounter Visit Diagnoses Not on filedocumented in this encounter Additional Health Concerns Assessment Noted Time PHQ-9 Depression Total Score: 8 04/09/19 25 2:48 PM EST documented as of this encounter Care Teams Sales Account Executive Relationship Specialty Start Date End Date Name, MD Triston [address] [place] [address] PCP - General Internal Medicine 04/09/24 Lars Hay Community Health Worker 09/27/23 Deniz Hay RN [address] [place] [phone] Cutter Operator Brick 09/27/23 documented as of this encounter
--- OUTSIDE RECORDS SUMMARY | 2024-04-18 14:23 | XMS_ITS | Encounter Summary ---
Author Organization [employer] Address [address] [place] [address] Care Team Providers Care Facilities Director Name Role Phone Lars Hay Unavailable Unavailable Deniz Hay RN Unavailable Name, Triston MCCLELLAND Primary Care Provider [phone] Encounter Details Date Type Department Care Team ([facility] Contact Info) Description 12/08/2023 Telephone [employer] [facility] [address] [place], [place] [phone] Radha Bennett [place] Social History Tobacco Use Types Packs/Day Years Used Date Smoking Tobacco: Every Day Cigarettes 0.5 22.2 Started: 2002 Smokeless Tobacco: Never Alcohol Use Standard Drinks/Week Comments Not Currently 0 (1 standard drink = 0.6 oz pur e alcohol) Depression Answer Date Recorded Patient Health Questionnaire-9 Score 10 12/01/2023 Patient Health Questionnaire-9 Score 10 12/01/2023 Last PHQ-9: Questionnaire Data Not on file 1 Housing Stability Answer Date Recorded What is your housing situation today? I do not have housing (Staying with others, in a hotel, in a chcf, living outside on the street, on a beach, in a car, or in a park 09/27/[address] you li ve. Do you have problems with any of the following? None of the above 09/27/2023 Food Insecurity Answer Date Recorded Within the [...] from getting things needed for daily living? No 09/27/2023 Utilities Answer Date Recorded In the past 12 months, has t he electric, gas, oil or water company threatened to shut off services in your home? No 09/27/2023 Depression Answer Date Recorded Patient Health Questionnaire-2 Score 4 12/01/2023 Internet Access Answer Date Recorded Internet Access Q1 Yes 10/17/2023 Internet Access Q2 Not on file 10/17/2023 Comments Unknown Sex and Gender Information Value [...] Description 07/10/2024 3:15 PM EDT Office Visit [facility] [address] [place] [phone] Name, MD Triston [address] [place] [phone] documented as of this encounter Visit Diagnoses Not on filedocumented in this encounter Additional Health Concerns Assessment Noted Time PHQ-9 Depression Total Score: 10 024 2:44 PM EDT documented as of this encounter Care Teams Facilities Director Relationship Specialty Start Date End Date Name, MD Triston [address] [place] [address] PCP - General Internal Medicine 04/09/24 aLrs Hay Community Health Worker 09/27/23 Deniz Hay RN [address] [place] [phone] Piledriver Carpenter 09/27/23 documented as of this encounter
--- OUTSIDE RECORDS SUMMARY | 2024-04-18 14:23 | XMS_ITS | Encounter Summary ---
Author Organization [employer] Address [address] [place] [address] Care Team Providers Care Truss Puller Helper Name Role Phone Lars Hay Unavailable Unavailable Deniz Hay RN Unavailable [phone] Name, Triston MCCLELLAND Primary Care Provider [phone] Encounter Details Date Type Department Care Team (Latest Contact Info) Description 04/09/2024 Travel Social History Tobacco Use Types Packs/Day [...] Description 07/10/2024 3:15 PM EDT Office Visit [facility] [address] [place] [address] Name, MD Triston [address] [place] [phone] documented as of this encounter Visit Diagnoses Not on filedocumented in this encounter Additional Health Concerns Assessment Noted Time PHQ-9 Depression Total Score: 8 04/09/19 25 2:48 PM EST documented as of this encounter Care Teams Truss Puller Helper Relationship Specialty Start Date End Date Name, MD Triston [address] [place] [phone] PCP - General Internal Medicine 04/09/24 Lars Hay Community Health Worker 09/27/23 Deniz Hay RN [address] [place] [phone] Case Managers 09/27/23 documented as of this encounter
--- OUTSIDE RECORDS SUMMARY | 2024-04-18 14:23 | XMS_ITS | Encounter Summary ---
Author Organization [employer] Address [address] [facility] [address] [place] [id number] Care Team Providers Care Restaurant District Manager Name Role Phone Lars Hay Unavailable Unavailable Deniz Hay RN Unavailable [phone] Name, Triston MCCLELLAND Primary Care Provider [phone] Reason for Visit * Reason Comments New patient visit Encounter Details Date Type Department Care Team ([facility] Contact Info) Description 04/09/2024 2:00 PM EST Office Visit [facility] [address] [place] [address] Name, MD Triston [address] [place] [address] Elevated blood pressure reading (Primary Dx); Healthcare maintenance; Weight gain; Vaccine refused by patient Social History Tobacco Use Types Packs/Day Years Used Date Smoking Tobacco: Every Day Cigarettes 0.5 22.2 Started: 2002 Smokeless Tobacco: Never Tobacco Cessation:Ready to Q uit: Not Asked; Counseling Given: Not Answered Alcohol Use Standard Drinks/Week Comments Not Currently [...] AM EDT documented as of this encounter Last Filed Vital Signs Vital Sign Reading Time Taken Comments Blood Pressure 152/73 04/09/2024 2:14 PM EST Pulse 59 04/09/2024 2:14 PM EST Temperature 36.8 ??C (98.3 ??F) 04/09/2024 2:14 PM ES T Respiratory Rate 21 04/09/2024 2:14 PM EST Oxygen Saturation 98% 04/09/2024 2:14 PM EST Inhaled Oxygen Concentration - - Weight 82.6 kg (182 lb) 04/09/2024 2:14 PM EST Height 157.5 cm (5' 2 ) 04/09/2024 2:14 PM EST Body Mass Index 33.29 04/09/2024 2:14 PM EST documented in this encounter Progress Notes * Triston Lundberg, - 04/09/2024 2:00 PM EST Subjective Patient ID: Amparo Esparza is a 38 y.o. female who presents for New patient visit. Patient comes today for the first time to the clinic to establish primary care. She is asymptomatic. The patient smokes cigarettes and smokes marijuana. She denies use of illicit drugs. She does not drink alcohol. The patient has not been sexually active in the past 3 months. She is and monogamous. She is interested in contraception. She has 3 healthy children. She is due for repeat Pap smear. She is interested in STD screening. Today her BP is elevated. She tells me her mother had hypertension and congestive heart failure andrecently . The patient refuses any vaccination. The patient tells me she has never been vaccinated for flu or COVID. She tells me she never had flu or COVID in the past. The patient denies any respiratory symptoms. She tells me she had asthma as a child. Review of Systems Constitutional: Negative for chills and fever. HENT: Negative for sore throat. Respiratory: Negative for cough, shortness of breath and wheezing. Cardiovascular: Negative for chest pain, palpitations and leg swelling. Gastrointestinal: Negative for abdominal pain. Visit Vitals BP (!) 152/73 (BP Location: Left arm, Patient Position: Sitting, BP Cuff Size: Adult) Pulse 59 Temp 98.3 ??F (36.8 ??C) (Temporal) Resp 21 Ht 5' 2 (1.575 m) Wt 182 lb (82.6 kg) SpO2 98% BMI 33.29 kg/m?? Smoking Status Every Day BSA 1.9 m?? Objective Physical Exam Constitutional: Appearance: Normal appearance. Cardiovascular: Rate and Rhythm: Normal rate and regular rhythm. Heart sounds: No murmur heard. No gallop. Pulmonary: Effort: Pulmonary effort is normal. No respiratory distress. Breath sounds: Normal breath sounds. No wheezing. Musculoskeletal: Right lower leg: No edema. Left lower leg: No edema. Neurological: Mental Status: She is alert. Assessment/Plan Diagnoses and all orders for this visit: Elevated blood pressure reading Comments: She tells me she would like to avoid any blood pressure medication if possible. She will look into the DASH diet online. I recommended start checking blood pressure at home daily. Follow-up televisit with team nurses next week. Check fasting blood work listed below. Orders: - CBC auto differential; Future - Comprehensive Metabolic Panel; Future Healthcare maintenance Comments: I recommended to check fasting blood work listed below Referral for Pap smear The patient is also interested in contraception but does not want oral contraceptives, Nexplanon, Depo shots Orders: - HIV-1/2 Antigen and Antibodies, Fourth Generation, with Reflexes; Future - Lipid Panel, Standard; Future - Hepatitis C Antibody with Reflex to HCV, RNA, Quantitative, Real-Time PCR; Future - RPR (Monitor) with Reflex to Titer; Future - Hepatitis B surface antigen, EIA; Future - Hepatitis B Surface Antibody, Qualitative; Future - Chlamydia/N. Gonorrhoeae RNA, TMA, Urogenitial Weight gain Comments: Patient is concerned about recent weight gain. I will check a TSH. Orders: - TSH W/Reflex to FT4; Future Vaccine refused by patient Comments: She refused any vaccination today. Other orders - Blood Pressure kit; Use once a day documented in this encounter Plan of Treatment Upcoming Encounters Date Type Department Care Team (Late st Contact Info) Description 07/10/2024 3:15 PM EDT Office Visit [facility] [address] [place] [phone] Name, MD Triston [address] [place] [phone] documented as of this encounter Procedures Procedure Name Priority Date/Time Associated Diagnosis Comments TSH W/REFLEX TO FT4 Routine 04/09/2024 3 :01 PM EST Weight gain CBC WITH AUTO DIFFERENTIAL Routine 04/09/2024 3:01 PM EST Elevated blood pressure reading HEPATITIS C AB W/REFL TO HCV RNA, QN, PCR Routine 04/09/2024 3:01 PM EST Healthcare maintenance CHLAMYDIA/N. GONORRHOEAE RNA, TMA, UROGENITAL Routine 04/09/2024 3:01 PM EST Healthcare maintenance HEPATITIS B SURFACE ANTIGEN, EIA Routine 04/09/2024 3:01 PM EST Healthcare maintenance RPR (MONITOR) W/REFL TITER Routine 04/09/2024 3:01 PM EST Healthcare maintenance HIV 1/2 ANTIGEN/ANTIBODY, FOURTH GENERATION W/RFL Routine 04/09/2024 3:01 PM EST Healthcare maintenance HEPATITIS B SURFACE ANTIBODY, QUALITATIVE Routine 04/09/2024 3:01 PM EST Healthcare maintenance LIPID PANEL, STANDARD Routine 04/09/2024 3:01 PM EST Healthcare maintenance COMPREHENSIVE METABOLIC PANEL Routine 04/09/2024 3:01 PM EST Elevated blood pressure reading documented in this encounter Results * Chlamydia/N. Gonorrhoeae RNA, TMA, Urogenitial (04/09/2024 3:01 PM EST) CT PCR NOT DETECTED Not Detect. [facility] Comment:A not detected test result does not exclude the possibilityof infection because test results can be affected byimproper specimen collection, concurrent antibiotic therapy,or the number of organisms in the specimen which may bebelow the sensitivity of the test. As with many diagnostictests, results from the Xpert CT/NG assay should beinterpreted in conjunction with other laboratory andclinical data available to the clinician.Xpert CT/NG performance has not been evaluated in patientsless than 14 years of age. The assay should not be used forthe evaluationof suspected sexual abuse or for other medico-legalindications. Additional testing is recommended in anycircumstance when false positive or false negative resultscould lead to adverse medical, social or psychologicalconsequences. NG PCR NOT DETECTED Not Detect. [facility] Comment:A not detected test result does not exclude the possibilityof infection because test results can be affected byimproper specimen collection, concurrent antibiotic therapy,or the number of organisms in the specimen which may bebelow the sensitivity of the test. As with many diagnostictests, results from the Xpert CT/NG assay should beinterpreted in conjunction with other laboratory andclinical data available to the clinician.Xpert CT/NG performance has not been evaluated in patientsless than 14 years of age. The assay should not be used forthe evaluationof suspected sexual abuse or for other medico-legalindications. Additional testing is recommended in anycircumstance when false positive or false negative resultscould lead to adverse medical, social or psychologicalconsequences. Urine (Urine, Random) 04/09/2024 3:01 PM EST 04/09/2024 4:16 PM EST Narrative [facility] - 04/10/2024 2:27 PM EST Urine us Triston Lundberg MD LAB MICROBIOLOGY - GENERAL ORDER KARIN Final Result Performing Organization Address [facility] de Phone Number [facility] [address] [place] [phone] * Hepatitis B Surface Antibody, Qualitative (04/09/2024 3:01 PM EST) Pathologist [facility] ~Hepatitis B Surface Antibody REACTIVE Nonreactive [facility] Comment:REACTIVE: > 11.99 mI U/mL Blood Venous blood specimen / Unknown 04/09/2024 3:01 PM EST 04/09/2024 4:05 PM EST us Triston Lundberg MD LAB BLOOD ORDERABLES Final Resul t Performing Organization Address [facility] Co de Phone Number [facility] [address] [place] [phone] * Hepatitis B surface antigen, EIA (04/09/2024 3:01 PM EST) [facility] Hepatitis B Surface Ag Negative Negative [facility] Blood Venous blood specimen / Unknown 04/09/2024 3:01 PM EST 04/09/2024 4:05 PM EST Triston Lundberg MD LAB BLOOD ORDERABLES Final Resul t Performing Organization Address [facility] de Phone Number [facility] [address] [place] [phone] * RPR (Monitor) with Reflex to??Titer (04/09/2024 3:01 PM EST) [facility] RPR (Monitor) w/Refl Titer NON-REACTI VE NON-REACT TREVOR [facility] Comment:THIS TEST WAS PERFOR MED AT:[employer] [place] [phone] MITCHELL MD Rapid Plasma Reagin Ab Titer TNP [facility] Blood Venous blood specimen / Unknown 04/09/2024 3:01 PM EST 04/09/2024 4:05 PM EST us Triston Lundberg MD LAB BLOOD ORDERABLES Final Resul t Performing Organization Address [facility] Co de Phone Number [facility] [address] [place] [phone] * Hepatitis C Antibody with Reflex to HCV, RNA, Quantitative, Real-Time PCR (04/09/2024 3:01 PM EST) Hepatitis C Antibody Nonreactive Nonreactive [facility] Comment:Antibodies to HCV no t detected; does not exclude early acuteHCV infection. Blood Venous blood specimen / Unknown 04/09/2024 3:01 PM EST 04/09/2024 4:05 PM EST us Triston Lundberg MD LAB BLOOD ORDERABLES Final Resul t Performing Organization Address [facility] Co de Phone Number [facility] [address] [place] [phone] * Lipid Panel, Standard (04/09/2024 3:01 PM EST) Triglycerides 54 <150 mg/dL [facility] Comment:Desirable Triglyceri de: less than 150 mg/dLBorderline High Triglyceride 150-199 mg/dLHigh Triglyceride: 200-499 mg/dLVery High Triglyceride: greater than or equal to 5OO mg/dL Cholesterol 139 <200 mg/dL [facility] Comment:Desirable Cholestero l: less than 200 mg/dLBorderline High Cholesterol: 200-239 mg/dLHigh Cholesterol: greater than 239 mg/dL LDL Cholesterol Calculated 78 <100 mg/dL [facility] Comment:Desirable LDL: less than 100 mg/dLNear Optimal/Above Optimal LDL: 110- 129 mg/dLBorderline High LDL: 130-159 mg/dLHigh LDL: 160-189 mg/dLVery High LDL: greater than or equal to 190 mg/dL HDL Cholesterol 51 >40 mg/dL [facility] Comment:Desirable HDL: great er than 40 mg/dL Note: This HDL assay may give artificially low results in patients with liver disease. Blood Venous blood specimen / Unknown 04/09/2024 3:01 PM EST 04/09/2024 4:05 PM EST Triston Lundberg MD LAB BLOOD ORDERABLES Final Resul t Performing Organization Address City/[facility]/ZIP Co de Phone Number [facility] [address] [place] [phone] * HIV-1/2 Antigen and Antibodies, Fourth Generation, with Reflexes (04/09/2024 3:01 PM EST) [facility] HIV AB/AG Nonreactive Nonreactive [facility] Comment:HIV-1 p24 Ag and/or HIV-1/HIV-2 Ab not detected.A test result that is nonreactive does not exclude thepossibility of exposure to or infection with HIV-1 and/orHIV-2. Nonreactive results in this assay for individualswith prior exposure to HIV-1 and/or HIV-2 may be due toantigen and antibody levels that are below the limit ofdetection of this assay.The [employer] HIV Ag/Ab Combo assay result andsupplemental assay results should be interpreted inconjunction with the patient's clinical presentation,history and other laboratory results. If the results areinconsistent with clinical evidence, additional testing issuggested to confirm the result. Blood Venous blood specimen / Unknown 04/09/2024 3:01 PM EST 04/09/2024 4:05 PM EST us Triston Lundberg MD LAB BLOOD ORDERABLES Final Resul t Performing Organization Address City/[facility]/ZIP Co de Phone Number [facility] [address] [place] [phone] * TSH W/Reflex to FT4 (04/09/2024 3:01 PM EST) TSH reflex Free T4 0.56 0.32 - 4.0 uIU/mL [facility] Blood Venous blood specimen / Unknown 04/09/2024 3:01 PM EST 04/09/2024 4:05 PM EST us Triston Name MD LAB BLOOD ORDERABLES Final Resul t [facility] [address] [place] [phone] * (ABNORMAL) Comprehensive Metabolic Panel (04/09/2024 3:01 PM EST) Pathologist [facility] Sodium 139 135 - 145 mmol/L [facility] Potassium 3.9 3.3 - 5.1 mmol/L [facility] Chloride 107 96 - 108 mmol/L [facility] Carbon Dioxide 27 22 - 29 mmol/L [facility] Anion Gap 9(L) 12 - 20 [facility] Urea Nitrogen (BUN) 11 9 - 16 mg/dL [facility] Creatinine, Serum 0.70 0.5 - 1.4 mg/dL [facility] Estimated Glomerular Filt Rate >60 [facility] Comment:Chronic Kidney Disea se: Estimated GFR < 60 mL/min/[id number] Kidney Disease: Estimated GFR < 15 mL/min/1.73m2 Glucose 81 60 - 115 mg/dL [facility] Calcium 8.7 8.4 - 10.2 mg/dL [facility] Bilirubin, Total 0.4 0.0 - 1.0 mg/dL [facility] Aspartate Amino Transferase 24 5 - 31 U/L [facility] Alanine Aminotransferase 21 0 - 31 U/L [facility] Total Protein 7.6 6.5 - 8.0 g/dL [facility] Albumin Level 3.9 3.5 - 5.0 g/dL [facility] Alkaline Phosphatase 73 39 - 117 U/L [facility] Blood Venous blood specimen / Unknown 04/09/2024 3:01 PM EST 04/09/2024 4:05 PM EST us Triston Name MD LAB BLOOD ORDERABLES Final Resul t [facility] [address] [place] [phone] * (ABNORMAL) CBC auto differential (04/09/2024 3:01 PM EST) White Blood Count 5.9 4.8 - 10.8 X10*3/uL [facility] Red Blood Count 4.37 4.20 - 5.50 X10*6/uL [facility] Hemoglobin 12.0 12.0 - 16.0 g/dl [facility] Hematocrit 37.6 37.0 - 47.0 % [facility] Mean Corpuscular Volume 86.0 80.0 - 98.0 fL [facility] Mean Corpuscular Hemoglobin 27.5 27.0 - 33.0 pg [facility] Mean Corpuscular HGB Conc 31.9 31.0 - 35.0 g/dl [facility] Red Cell Distribution Width 14.7 11.0 - 16.0 % [facility] Platelet Count 244 160 - 400 X10*3/uL [facility] Mean Platelet Volume 10.2 9.4 - 12.3 fL [facility] Neutrophils Percent Auto 58.9 45 - 73 % [facility] Imm Gran Pct Auto 0.3 0.0 - 0.4 % [facility] Lymphocytes Percent Auto 18.6(L) 20 - 40 % [facility] Monocytes Percent Auto 15.2(H) 2 - 11 % [facility] Eosinophils Percent Auto 5.6(H) 0 - 4 % [facility] Basophils Percent Auto 1.4 0 - 2 % [facility] NRBC Pct Auto 0.0 0.0 - 0.2 /100WBC [facility] Neutrophils Absolute Auto 3.4 2.0 - 8.3 x10*3/uL [facility] Imm Gran Abs Auto 0.02 0.00 - 0.03 X10*3/uL [facility] Lymphocytes Absolute Auto 1.1(L) 1.2 - 4.9 X10*3/uL [facility] Monocytes Absolute Auto 0.9 0.1 - 1.2 X10*3/uL [facility] Eosinophils Absolute Auto 0.3 0.0 - 0.4 X10*3/uL [facility] Basophils Absolute Auto 0.1 0.0 - 0.2 X10*3/uL [facility] NRBC Abs Auto 0.000 0.0 - 0.012 X10*3/uL [facility] Blood Venous blood specimen / Unknown 04/09/2024 3:01 PM EST 04/09/2024 4:05 PM EST us Triston Lundberg MD LAB BLOOD ORDERABLES Final Resul t Performing Organization Address City/State/[facility] Co de Phone Number [facility] [address] [place] [phone] documented in this encounter Visit Diagnoses Diagnosis Elevated blood pressure reading- Primary Elevated blood pressure reading without diagnosis of hypertension Healthcare maintenance Weight gain Other symptoms concerning nutrition, metabolism, and development Vaccine refused by patient documented in this encounter Additional Health Concerns Assessment Noted Time PHQ-9 Depression Total Score: 8 04/09/19 25 2:48 PM EST documented as of this encounter Care Teams Restaurant District Manager Relationship Specialty Start Date End Date Name, MD Triston [address] [place] [phone] PCP - General Internal Medicine 04/09/24 Lars Hay Community Health Worker 09/27/23 Deniz Hay RN [address] [place] [phone] Medical Records Director 09/27/23 documented as of this encounter
--- OUTSIDE RECORDS SUMMARY | 2024-04-18 14:23 | XMS_ITS | Encounter Summary ---
Author Organization [employer] Address [address] [facility] [address] [address] [place] [address] Care Team Providers Care Voice Professor Name Role Phone Lars Hay Unavailable Unavailable Deniz Hay RN Unavailable [phone] Name, Triston MCCLELLAND Primary Care Provider [phone] Encounter Details Date Type Department Care Team (Late st Contact Info) Description 04/17/2024 Telephone [facility] [address] [place], [place] [phone] Name, MD Triston [address] [place] [address] Social History Tobacco Use Types Packs/Day Years [...] AM EDT documented as of this encounter Miscellaneous Notes * Telephone Encounter - Eva Lawler RN - 04/17/2024 3:48 PM EST T/C to pt to triage based on reported symptoms below. No answer, v/m left to return call to Blue team nurses. * Telephone Encounter - Coco Cross - 04/17/2024 3:00 PM EST Pt walked in wanting to speak with a nurse due to nose bleeding a lot and feeling nauseas and having really bad headaches . documented in this encounter Plan of Treatment Upcoming Encounters Date Type Department Care Team (Late st Contact Info) Description 07/10/2024 3:15 PM EDT Office Visit [facility] [address] [place] [address] Name, MD Triston [address] [place] [address] documented as of this encounter Visit Diagnoses Not on filedocumented in this encounter Additional Health Concerns Assessment Noted Time PHQ-9 Depression Total Score: 8 04/09/19 25 2:48 PM EST documented as of this encounter Care Teams Voice Professor Relationship Specialty Start Date End Date Name, MD Triston [address] [place] [address] PCP - General Internal Medicine 04/09/24 Lars Hay Community Health Worker 09/27/23 Deniz Hay RN [address] [place] [phone] Slag Expander 09/27/23 documented as of this encounter
--- OUTSIDE RECORDS SUMMARY | 2024-04-18 14:23 | XMS_ITS | Clinical Summary ---
Author Organization [employer] Address [address] [place] [address] Care Team Providers Care Law Office Manager Name Role Phone Lars Hay Unavailable Unavailable Deniz Hay RN Unavailable [phone] Name, Triston MCCLELLAND Primary Care Provider [phone] Allergies No known active allergies Medications * This document contains information received from the source organization and may not represent a complete record from that organization. Blood Pressure kit Use once a day 1 kit 04/09/2024 Active Active Problems Problem Noted Date Diagnosed Date History of gestational hypertension 11/20/2023 History of head injury 11/20/2023 History of pre-eclampsia 11/20/2023 Grief 10/03/2023 Assessment & Plan (12/01/2023 4:05 PM EDT): During [facility]BH Consult Amparo presenting with depressed mood, Tearful, hopelessness, irritable mood, loss of interests/pleasure , sense of isolation/loneliness , isolating, change in appetite or weight reduce appetite, psychomotor retardation, fatigue/loss of energy, difficulty concentrating and excessive worry/anxiety, difficulty controlling worry, and anxiety/worry associated to easily fatigued , difficulty concentrating and/or mind going blank , and irritability, intense sadness, persistent yearning and recurrent thoughts associated with her mom's passing ; for a period of 0-6 mo, for most or all symptoms in the context of . Amparo feels emotionally overwhelmed due to experiencing a significant loss in her life. Her mother two months ago. Since her mom's passing, Amparo has experienced anxiety symptoms and severe depression. Lack of social support and connections are identified as trigger as well. She's currently going through additional stress associated with her housing situation. Pt is connected with a veterinary surgery technologist via [facility]. clinician assessed and reviewed for risks factors, current triggers and protective factors. Pt is engaged in MH services and sees a therapist every week per her report. Pt was able to obtain FMLA letter to work on herself during this difficult time. clinician will provide additional support during next medical appointment if needed. Assessment & Plan (10/10/2023 8:52 AM EDT): During IBH Consult Amparo presenting with depressed mood, Tearful, crying spells , hopelessness, loss of interests/pleasure , sense of isolation/loneliness , isolating, change in appetite or weight reduce appetite, changes in sleep difficulty falling asleep, psychomotor agitation, fatigue/loss of energy, worthlessness, difficulty concentrating; for a period of 0-6 mo, for most or all symptoms in the context of . Amparo feels emotionally overwhelmed due to experiencing a significant loss in her life. Her mother two weeks ago. Amparo is having a difficult time processing her emotions and letting space for grieving. Since her mom's passing, Amparo has experienced anxiety symptoms and severe depression. Lack of social support and connections are identified as trigger as well. clinician assessed and reviewed for risks factors, current triggers and protective factors. Pt is engaged in MH services and sees a therapist every week. Amparo is interested in starting medication to treat symptoms. Recommended to seek out for psychopharmacology services within same agency. Pt will request FMLA to PCP (dr. Gonzalez) due to severity of symptoms. Patient is hoping to have a pause from work to focus on her own healing. Adjustment disorder with mixed anxiety and depre ssed mood 10/03/2023 Assessment & Plan (12/01/2023 4:05 PM EDT): During IBH Consult Amparo presenting with depressed mood, Tearful, hopelessness, irritable mood, loss of interests/pleasure , sense of isolation/loneliness , isolating, change in appetite or weight reduce appetite, psychomotor retardation, fatigue/loss of energy, difficulty concentrating and excessive worry/anxiety, difficulty controlling worry, and anxiety/worry associated to easily fatigued , difficulty concentrating and/or mind going blank , and irritability, intense sadness, persistent yearning and recurrent thoughts associated with her mom's passing ; for a period of 0-6 mo, for most or all symptoms in the context of . Amparo feels emotionally overwhelmed due to experiencing a significant loss in her life. Her mother two months ago. Since her mom's passing, Amparo has experienced anxiety symptoms and severe depression. Lack of social support and connections are identified as trigger as well. She's currently going through additional stress associated with her housing situation. Pt is connected with a veterinary surgery technologist via [facility]. clinician assessed and reviewed for risks factors, current triggers and protective factors. Pt is engaged in MH services and sees a therapist every week per her report. Pt was able to obtain FMLA letter to work on herself during this difficult time. clinician will provide additional support during next medical appointment if needed. Assessment & Plan (10/10/2023 8:52 AM EDT): During IBH Consult Amparo presenting with depressed mood, Tearful, crying spells , hopelessness, loss of interests/pleasure , sense of isolation/loneliness , isolating, change in appetite or weight reduce appetite, changes in sleep difficulty falling asleep, psychomotor agitation, fatigue/loss of energy, worthlessness, difficulty concentrating; for a period of 0-6 mo, for most or all symptoms in the context of . Amparo feels emotionally overwhelmed due to experiencing a significant loss in her life. Her mother two weeks ago. Amparo is having a difficult time processing her emotions and letting space for grieving. Since her mom's passing, Amparo has experienced anxiety symptoms and severe depression. Lack of social support and connections are identified as trigger as well. clinician assessed and reviewed for risks factors, current triggers and protective factors. Pt is engaged in MH services and sees a therapist every week. Amparo is interested in starting medication to treat symptoms. Recommended to seek out for psychopharmacology services within same agency. Pt will request FMLA to PCP (dr. Gonzalez) due to severity of symptoms. Patient is hoping to have a pause from work to focus on her own healing. Opioid use 10/01/2023 Overview (10/01/2023): Historical. Patient denies opiate use as of 10/01/23 Assessment & Plan (10/01/2023 11:28 AM EDT): Historical, she denied opiate use. Gastroesophageal reflux disease 03/13/2015 Depression 03/13/2015 Assessment & Plan (10/01/2023 11:33 AM EDT): Recurrent, not on rx at this time. She feels safe at home and is able to reach out for safety. She tells me she has crisis number and knows when to use it. She will come [facility] pr[facility] worsening depression sxs that do not need crisis eval OR wait until she sees new PCP or intake provider. I agree for her to be out of work for the next 4w due to depression so that she can engage in rx again. I will refer to CM to reach out with other needs, and hopefully re connect with work when ready. FU w new PCP in 1-2m. Order labs and needs BP check due to a listed hx HTN, not on meds at this time. Tobacco use 03/13/2015 Assessment & Plan (10/01/2023 11:34 AM EDT): Advised to quit smoking, not ready at this time Fu w PCP or earlier prn. Encounters Date Type Department Care Team Description 04/17/2024 2:45 PM EST Procedure Visit [address] [address] Chari Dickson CNM Cervical high risk human papillomavirus (HPV) DNA test positive (Primary Dx); Family history of breast cancer in mother; Grief; Family planning counseling; Breast cancer screening by mammogram 04/17/[address] [address] Triston Lundberg MD 04/17/2024 Travel 04/16/2024 2:30 PM EST Telemedicine [address] [address] Muna Scott RN Elevated blood pressure reading [R03.0] 04/16/[address] [address] Triston Lundberg MD 04/16/2024 Travel 04/09/2024 2:00 PM EST Office Visit [facility] [address] [place] [address] Name, MD Triston Elevated blood pressure reading (Primary Dx); Healthcare maintenance; Weight gain; Vaccine refused by patient 04/09/2024 Travel 03/29/2024 Patient Outreach [facility] [address] [place] [address] Name, MD Triston Pre-visit Planning (SDOH negative, Tobacco screening negative. ) 02/07/2024 Telephone [facility] [address] [place] [address] Scott Casas MD New Patient appt. from Last 3 Months Immunizations Name Administration Dates Next Due Tdap 03/25/2020,03/13/2015,07/02/2012 Family History Medical History Relation Name Comments Breast cancer Mother Heart failure Mother Hypertension Mother Relation Name Status Comments Mother Social History Tobacco Use Types Packs/Day Years [...] not to disclose 2021 10:15 AM EDT Last Filed Vital Signs Vital Sign Reading Time Taken Comments Blood Pressure 130/76 04/17/2024 3:11 PM EST Pulse 60 04/17/2024 3:11 PM EST Temperature 36.3 ??C (97.4 ??F) 04/17/2024 3:11 PM ES T Respiratory Rate 20 04/17/2024 3:11 PM EST Oxygen Saturation 98% 04/17/2024 3:11 PM EST Inhaled Oxygen Concentration - - Weight 84.4 kg (186 lb) 04/17/2024 3:11 PM EST Height 157.5 cm (5' 2 ) 04/17/2024 3:11 PM EST Body Mass Index 34.02 04/17/2024 3:11 PM EST Plan of Treatment Upcoming Encounters Date Type Department Care Team (Late st Contact Info) Description 07/10/2024 3:15 PM EDT Office Visit [facility] [address] [place] [address] Name, MD Triston [address] [place] [address] Health Maintenance Due Date Last Done Comments Hepatitis A Vaccines (1 of 2 - Risk 2-dose series) 10/24/2003 Hepatitis B Vaccines (1 of 3 - 19+ 3-dose series) 10/24/2003 Pneumococcal Vaccine: Pediatrics (0 to 5 Years) and At-Risk Patients (6 to 49) Years) (1 of 2 - PCV) 10/24/2003 Pap Smear 2005 COVID-19 Vaccine (1 - 2023-2 5 season) 2023 Influenza Vaccine (#1) 2023 Alcohol/Substance Use Screening 04/09/2025 04/09/2024 Depression Screening 04/09/2025 04/09/2024, 04/09/2024 SDOH Screening 04/09/2025 04/09/2024 Family Planning (PISQ) 04/17/2025 04/17/2024 Tobacco Screening 04/17/2025 04/17/2024 Cervical Cancer Screening 11/20/2025 HPV/Cotest 11/20/2025 11/20/2020, 11/20/2020 Lipid Panel 04/09/2029 04/09/2024, 08/01/2020 DTaP/Tdap/Td Vaccines (4 - T d or Tdap) 03/25/2030 03/25/2020, 03/13/2015, 07/02/2012 Zoster Vaccines (1 of 2) 2034 RSV Patients and Patients Aged 60 years or older (1 - 1-dose 75+ series) 10/24/2059 HIV Screening Completed 04/09/2024, 11/21/2020, 08/01/2020 Hepatitis C Screening Completed 04/09/2024 , 11/21/2020, 08/01/2020 HIB Vaccines Aged Out No longer eligi ble based on patient's age to complete this topic HPV Vaccines Aged Out No longer eligi ble based on patient's age to complete this topic IPV Vaccines Aged Out No longer eligi ble based on patient's age to complete this topic Meningococcal Vaccine Aged Out No aryan angela eligible based on patient's age to complete this topic RSV under 20 months Aged Out No longe r eligible based on patient's age to complete this topic Rotavirus Vaccines Aged Out No longer eligible based on patient's age to complete this topic Procedures Procedure Name Priority Date/Time Associated Diagnosis Comments HEPATITIS B SURFACE ANTIBODY, QUALITATIVE Routine 04/09/2024 3:01 PM EST Healthcare maintenance HEPATITIS B SURFACE ANTIGEN, EIA Routine 04/09/2024 3:01 PM EST Healthcare maintenance RPR (MONITOR) W/REFL TITER Routine 04/09/2024 3:01 PM EST Healthcare maintenance HEPATITIS C AB W/REFL TO HCV RNA, QN, PCR Routine 04/09/2024 3:01 PM EST Healthcare maintenance LIPID PANEL, STANDARD Routine 04/09/2024 3:01 PM EST Healthcare maintenance HIV 1/2 ANTIGEN/ANTIBODY, FOURTH GENERATION W/RFL Routine 04/09/2024 3:01 PM EST Healthcare maintenance TSH W/REFLEX TO FT4 Routine 04/09/2024 3 :01 PM EST Weight gain COMPREHENSIVE METABOLIC PANEL Routine 04/09/2024 3:01 PM EST Elevated blood pressure reading CBC WITH AUTO DIFFERENTIAL Routine 04/09/2024 3:01 PM EST Elevated blood pressure reading COMPREHENSIVE METABOLIC PANEL Routine 04/09/2024 3:01 PM EST Recurrent major depressive episodes, moderate (CMS/HCC) CBC WITH AUTO DIFFERENTIAL Routine 04/09/2024 3:01 PM EST Recurrent major depressive episodes, moderate (CMS/HCC) TSH W/REFLEX TO FT4 Routine 04/09/2024 3 :01 PM EST Recurrent major depressive episodes, moderate (CMS/HCC) VITAMIN D,25-OH,TOTAL,IA Routine 04/09/2024 3:01 PM EST Recurrent major depressive episodes, moderate (CMS/HCC) CHLAMYDIA/N. GONORRHOEAE RNA, TMA, UROGENITAL Routine 04/09/2024 3:01 PM EST Healthcare maintenance ZZZ HISTORICAL HPV E6/E7 RFLX KAMALJIT 16 18/45 Routine 11/20/2020 3:50 PM EDT from Last 3 Months or Most Recently Relevant to Health Maintenance Results * Vitamin D, 25-Hydroxy, Total, Immunoassay (04/09/2024 3:01 PM EST) Vitamin D 25-OH Total 36.4 >30 ng/mL [facility] Comment:Health Based Referen ce Values*< 20 ng/mL Mmmievsam68-00 ng/mL Insufficient> 30 ng/mL Sufficient*Álvaro IRVIN. N Engl J Med. 2007;357:266-280Care must be taken in interpreting Vitamin D results fromdifferent laboratories and methodologies. Published datademonstrated that results from patients undergoinghemodialysis may show a negative bias when tested withvarious automated 25-OH vitamin D assays when compared toLC-MS/MS.When testing samples from patients whose predominant form ofVitamin D is Vitamin D2, such as patients receiving VitaminD2 supplementation, results that are subtherapeutic shouldbe confirmed with another method such as LC-MS/MS. Blood 04/09/2024 3:01 PM EST 04/09/2024 4:05 PM EST Lisa Grubbs MD LAB BLOOD ORDERABLES Fin al Result Performing Organization Address City/[facility]/ZIP Co de Phone Number [facility] [address] [place] [phone] * TSH W/Reflex to FT4 (04/09/2024 3:01 PM EST) Only the most recent of2 resultswithin the time period is included. [facility] TSH reflex Free T4 0.56 0.32 - 4.0 uIU/mL [facility] Blood Venous blood specimen / Unknown 04/09/2024 3:01 PM EST 04/09/2024 4:05 PM EST Triston Lundberg MD LAB BLOOD ORDERABLES Final Resul t Performing Organization Address [facility] Co de Phone Number [facility] [address] [place] [phone] * (ABNORMAL) CBC auto differential (04/09/2024 3:01 PM EST) Only the most recent of2 resultswithin the time period is included. Pathologist [facility] White Blood Count 5.9 4.8 - 10.8 X10*3/uL [facility] Red Blood Count 4.37 4.20 - 5.50 X10*6/uL [facility] Hemoglobin 12.0 12.0 - 16.0 g/dl [facility] Hematocrit 37.6 37.0 - 47.0 % [facility] Mean Corpuscular Volume 86.0 80.0 - 98.0 fL [facility] Mean Corpuscular Hemoglobin 27.5 27.0 - 33.0 pg [facility] Mean Corpuscular HGB Conc 31.9 31.0 - 35.0 g/dl [facility] Red Cell Distribution Width 14.7 11.0 - 16.0 % [facility] Platelet Count 244 160 - 400 X10*3/uL [facility] Mean Platelet Volume 10.2 9.4 - 12.3 fL [facility] Neutrophils Percent Auto 58.9 45 - 73 % [facility] Imm Gran Pct Auto 0.3 0.0 - 0.4 % [facility] Lymphocytes Percent Auto 18.6(L) 20 - 40 % [facility] Monocytes Percent Auto 15.2(H) 2 - 11 % [facility] Eosinophils Percent Auto 5.6(H) 0 - 4 % [facility] Basophils Percent Auto 1.4 0 - 2 % [facility] NRBC Pct Auto 0.0 0.0 - 0.2 /100WBC [facility] Neutrophils Absolute Auto 3.4 2.0 - 8.3 x10*3/uL [facility] Imm Gran Abs Auto 0.02 0.00 - 0.03 X10*3/uL [facility] Lymphocytes Absolute Auto 1.1(L) 1.2 - 4.9 X10*3/uL [facility] Monocytes Absolute Auto 0.9 0.1 - 1.2 X10*3/uL [facility] Eosinophils Absolute Auto 0.3 0.0 - 0.4 X10*3/uL [facility] Basophils Absolute Auto 0.1 0.0 - 0.2 X10*3/uL [facility] NRBC Abs Auto 0.000 0.0 - 0.012 X10*3/uL [facility] Blood Venous blood specimen / Unknown 04/09/2024 3:01 PM EST 04/09/2024 4:05 PM EST Triston Lundberg MD LAB BLOOD ORDERABLES Final Resul t Performing Organization Address [facility] Co de Phone Number [facility] [address] [place] [phone] * Hepatitis C Antibody with Reflex to HCV, RNA, Quantitative, Real-Time PCR (04/09/2024 3:01 PM EST) [facility] Hepatitis C Antibody Nonreactive Nonreactive [facility] Comment:Antibodies to HCV no t detected; does not exclude early acuteHCV infection. Blood Venous blood specimen / Unknown 04/09/2024 3:01 PM EST 04/09/2024 4:05 PM EST Triston Lundberg MD LAB BLOOD ORDERABLES Final Resul t Performing Organization Address [facility] de Phone Number [facility] [address] [place] [phone] * Chlamydia/N. Gonorrhoeae RNA, TMA, Urogenitial (04/09/2024 3:01 PM EST) [facility] CT PCR NOT DETECTED Not Detect. [facility] Comment:A not detected test [...] psychologicalconsequences. NG PCR NOT DETECTED Not Detect. [facility] Comment:A not detected test [...] PM EST 04/09/2024 4:16 PM EST Narrative [facility] - 04/10/2024 2:27 PM EST Urine us Triston Lundberg MD LAB MICROBIOLOGY - GENERAL ORDER KARIN Final Result Performing Organization Address [facility]/ZIP Co de Phone Number [facility] [address] [place] [phone] * Hepatitis B surface antigen, EIA (04/09/2024 3:01 PM EST) Hepatitis B Surface Ag Negative Negative [facility] Blood Venous blood specimen / Unknown 04/09/2024 3:01 PM EST 04/09/2024 4:05 PM EST us Triston Lundberg MD LAB BLOOD ORDERABLES Final Resul t Performing Organization Address [facility] Co de Phone Number [facility] [address] [place] [phone] * RPR (Monitor) with Reflex to??Titer (04/09/2024 3:01 PM EST) RPR (Monitor) w/Refl Titer NON-REACTI VE NON-REACT TREVOR [facility] Comment:THIS TEST WAS PERFOR MED AT:[id number] [place] [phone] MITCHELL MD Rapid Plasma Reagin Ab Titer TNP [facility] Blood Venous blood specimen / Unknown 04/09/2024 3:01 PM EST 04/09/2024 4:05 PM EST us Triston Lundberg MD LAB BLOOD ORDERABLES Final Resul t Performing Organization Address City/[facility]/ZIP Co de Phone Number [facility] [address] [place] [phone] * HIV-1/2 Antigen and Antibodies, Fourth Generation, with Reflexes (04/09/2024 3:01 PM EST) Pathologist [facility] HIV AB/AG Nonreactive Nonreactive [facility] Comment:HIV-1 p24 Ag and/or HIV-1/HIV-2 Ab not detected.A test result that is nonreactive does not exclude thepossibility of exposure to or infection with HIV-1 and/orHIV-2. Nonreactive results in this assay for individualswith prior exposure to HIV-1 and/or HIV-2 may be due toantigen and antibody levels that are below the limit ofdetection of this assay.The [employer] HIV Ag/Ab Combo assay result andsupplemental assay results should be interpreted inconjunction with the patient's clinical presentation,history and other laboratory results. If the results areinconsistent with clinical evidence, additional testing issuggested to confirm the result. Blood Venous blood specimen / Unknown 04/09/2024 3:01 PM EST 04/09/2024 4:05 PM EST us Triston Lundberg MD LAB BLOOD ORDERABLES Final Resul t Performing Organization Address City/[facility]/ZIP Co de Phone Number [facility] [address] [place] [phone] * Hepatitis B Surface Antibody, Qualitative (04/09/2024 3:01 PM EST) ~Hepatitis B Surface Antibody REACTIVE Nonreactive [facility] Comment:REACTIVE: > 11.99 mI U/mL Blood Venous blood specimen / Unknown 04/09/2024 3:01 PM EST 04/09/2024 4:05 PM EST us Triston Lundberg MD LAB BLOOD ORDERABLES Final Resul t Performing Organization Address City/[facility] Co de Phone Number [facility] [address] [place] [phone] * Lipid Panel, Standard (04/09/2024 3:01 PM EST) Triglycerides 54 <150 mg/dL [facility] Comment:Desirable Triglyceri de: less than 150 mg/dLBorderline High Triglyceride 150-199 mg/dLHigh Triglyceride: 200-499 mg/dLVery High Triglyceride: greater than or equal to 5OO mg/dL Cholesterol 139 <200 mg/dL [facility] Comment:Desirable Cholestero l: less than 200 mg/dLBorderline High Cholesterol: 200-239 mg/dLHigh Cholesterol: greater than 239 mg/dL LDL Cholesterol Calculated 78 <100 mg/dL [facility] Comment:Desirable LDL: less than 100 mg/dLNear Optimal/Above Optimal LDL: 110- 129 mg/dLBorderline High LDL: 130-159 mg/dLHigh LDL: 160-189 mg/dLVery High LDL: greater than or equal to 190 mg/dL HDL Cholesterol 51 >40 mg/dL [facility] Comment:Desirable HDL: great er than 40 mg/dL Note: This HDL assay may give artificially low results in patients with liver disease. Blood Venous blood specimen / Unknown 04/09/2024 3:01 PM EST 04/09/2024 4:05 PM EST us Triston Lundberg MD LAB BLOOD ORDERABLES Final Resul t Performing Organization Address City/[facility]/ZIP Co de Phone Number [facility] [address] [place] [phone] * (ABNORMAL) Comprehensive Metabolic Panel (04/09/2024 3:01 PM EST) Only the most recent of2 resultswithin the time period is included. Sodium 139 135 - 145 mmol/L [facility] Potassium 3.9 3.3 - 5.1 mmol/L [facility] Chloride 107 96 - 108 mmol/L [facility] Carbon Dioxide 27 22 - 29 mmol/L [facility] Anion Gap 9(L) 12 - 20 [facility] Urea Nitrogen (BUN) 11 9 - 16 mg/dL [facility] Creatinine, Serum 0.70 0.5 - 1.4 mg/dL [facility] Estimated Glomerular Filt Rate >60 [facility] Comment:Chronic Kidney Disea se: Estimated GFR < 60 mL/min/1.83g6Tgcpfx Kidney Disease: Estimated GFR < 15 mL/min/1.73m2 Glucose 81 60 - 115 mg/dL [facility] Calcium 8.7 8.4 - 10.2 mg/dL [facility] Bilirubin, Total 0.4 0.0 - 1.0 mg/dL [facility] Aspartate Amino Transferase 24 5 - 31 U/L [facility] Alanine Aminotransferase 21 0 - 31 U/L [facility] Total Protein 7.6 6.5 - 8.0 g/dL [facility] Albumin Level 3.9 3.5 - 5.0 g/dL [facility] Alkaline Phosphatase 73 39 - 117 U/L [facility] Blood Venous blood specimen / Unknown 04/09/2024 3:01 PM EST 04/09/2024 4:05 PM EST us Triston Lundberg MD LAB BLOOD ORDERABLES Final Resul t [facility] [address] [place] [phone] [phone] * (ABNORMAL) HPV E6/E7 RFLX KAMALJIT 16 18/45 (11/20/2020 3:50 PM EDT) HPV 16 RNA NOT DETECTED NOT DETECTED [facility] HPV 18/45 RNA NOT DETECTED NOT DETECTED [facility] Comment: Methodology: Cattle Dealer Mediated Amplification The analytical performance characteristics of this assay have been determined by [facility]. The modifications have not been cleared or approved by the FDA. This assay has been validated pursuant to the CLIA regulations and is used for clinical purposes. THIS TEST WAS PERFORMED AT: [facility] [address] [place] [address],[place], [place] ??[phone] MATTY MITCHELL MD HPV mRNA E6/E7 rflx Detected(A) Not Detected [facility] Comment: Methodology: Cattle Dealer-Mediated Amplification This assay detects E6/E7 viral messenger RNA (mRNA) from 14 high-risk HPV types (16,18,31,33,35,39,45,51,52,56,58,59,66,68). The analytical performance characteristics of this assay have been determined by [facility]. The modifications have not been cleared or approved by the FDA. This assay has been validated pursuant to the CLIA regulations and is used for clinical purposes. For additional information, please refer to http://education.OSIsoft/faq/PLO026m7 (This link if provided for information/ educational purposes only.) THIS TEST WAS PERFORMED AT: [facility] [address],[facility] [place], [place] ??[phone] MATTY MITCHELL MD 11/20/2020 3:50 PM EDT us Elzbieta Hirsch HISTORICAL/NON ORDERABLE LABS Fi nal Result [facility] [address] from Last 3 Months or Most Recently Relevant to Health Maintenance Insurance STANDARD Care Teams Law Office Manager Relationship Specialty Start Date End Date Name, MD Triston [address] [place] [address] PCP - General Internal Medicine 04/09/24 Lars Hay Community Health Worker 09/27/23 Deniz Hay, RN [address] [place] [address] Mica Laminating Machine Feeder 09/27/23
--- OUTSIDE RECORDS SUMMARY | 2024-04-18 14:23 | XMS_ITS | Encounter Summary ---
Author Organization [employer] Address [address] [place] [address] Care Team Providers Care Profiling Machine Operator Name Role Phone Lars Hay Unavailable Unavailable Deniz Hay RN Unavailable [phone] Name, Triston MCCLELLAND Primary Care Provider [phone] Reason for Visit * Reason Comments Hypertension Encounter Details Date Type Department Care Team ([facility] st Contact Info) Description 04/16/2024 2:30 PM EST Telemedicine [facility] MEDICINE [address] [place] [address] Muna Scott RN Elevated blood pressure reading [R03.0] Social History Tobacco Use Types Packs/Day Years [...] AM EDT documented as of this encounter Progress Notes * Muna Scott RN - 04/16/2024 2:30 PM EST SUBJECTIVE: Amparo Esparza is a 38 y.o. year old female who presents for Hypertension Preferred language for medical information: Guinean Vehicle Assembler needed: No Recommendations at last visit were DASH diet, daily BP readings at home. Today, Amparo Esparza does not complain of any blurred vision, shortness of breath, chest pain, dizziness, or headaches. Pt reports she had chest pain yesterday on the left side, but believes it is related to anxiety. Pt reports she had right sided chest pain today but it is anxiety. Pt reports since she was told about her elevated BP readings, she has has lot of anxiety. Pt reports she is extremely anxious since her mom a few months ago of a heart attack. Pt reports she had blurred/hazy vision for 2 minutes yesterday that has resolved. Pt reports she has a history of migraines and had one a few days ago. Pt also reports she has been sick. Pt reports she smokes cigarettes and has been having a pack per day. Pt reports she drinks maybe every 6 months, and is very infrequent. Ptreports drinking 2-3 cups of coffee per day with a lot of sugar and creamer. Pt reports she has been trying to cut down on coffee intake. Pt denies exercising, but reports she will begin exercising. Pt reports she really wants to get healthy. Pt reports breakfast consisting of ayala and eggs. Lunch consists of ham and cheese. Dinner typically consists of rice, beans, vegetables, and a fried meat or a fried meat with potatoes and vegetables. Pt reports she has always had a low heart rate. Pt reports she would like to try and make healthy choices by eating better and exercising before medication treatment, but if the patient will take medications if necessary. Current Outpatient Medications Medication Sig Dispense Refill Blood Pressure kit Use once a day 1 kit 0 No current facility-administered medications for this visit. Patient Active Problem List Diagnosis Date Noted History of gestational hypertension 11/20/2023 History of head injury 11/20/2023 History of pre-eclampsia 11/20/2023 Grief 10/03/2023 Adjustment disorder with mixed anxiety and depressed mood 10/03/2023 Opioid use 10/01/2023 Gastroesophageal reflux disease 03/13/2015 Depression 03/13/2015 Tobacco use 03/13/2015 Patient has no known allergies. Amparo Esparza is not on medication management for blood pressure at this time. Social History Tobacco Use Smoking Status Every Day Current packs/day: 0.50 Average packs/day: 0.5 packs/day for 22.2 years (11.1 ttl pk-yrs) Types: Cigarettes Start date: 2002 Smokeless Tobacco Never Social History Substance and Sexual Activity Alcohol Use Not Currently Comment: rare Social History Substance and Sexual Activity Drug Use Yes Frequency: 7.0 times per week Types: Marijuana BP Readings from Last 4 Encounters: 04/09/24 (!) 152/73 11/12/20 115/70 Pulse Readings from Last 4 Encounters: 04/09/24 59 11/12/20 61 OBJECTIVE: 04/09/24: 128/77 HR 61 04/10/24: 135/65 HR 59 04/12/24: 147/89 HR 56 04/12/24: 120/80 HR 60 04/13/24: 153/97 HR 61 04/13/24: 139/83 HR 52 04/14/24: 129/83 HR 71 04/15/24: 124/71 HR 66 04/16/24: 131/77 HR 58 ASSESSMENT: Achieve goal blood pressure of <140/90 or <130/80 PLAN: Amparo Vilma advised of reinforcement of lifestyle modifications including low sodium diet and exercise were reviewed. Advised to avoid fried, fatty, processed foods, sweets, juices, soda. Encouraged to eat baked chicken, turkey, fish, fruits, vegetables, water. Advised to continue to take BP readings until provider makes a decision. Amparo Ruizdo agreeable to plan discussed at today's visit. Future Appointments Date Time Provider Department Center 04/17/2024 2:45 PM Chari Dickson CNM MEDICINE [facility] 07/10/2024 3:15 PM Triston Lundberg MD MEDICINE [facility] Muna Scott, RN documented in this encounter Plan of Treatment Upcoming Encounters Date Type Department Care Team (Late st Contact Info) Description 07/10/2024 3:15 PM EDT Office Visit [facility] MEDICINE [address] [place] [address] Triston Lundberg MD [address] [place] [address] documented as of this encounter Visit Diagnoses Diagnosis Elevated blood pressure reading [R03.0] Elevated blood pressure reading without diagnosis of hypertension documented in this encounter Additional Health Concerns Assessment Noted Time PHQ-9 Depression Total Score: 8 04/09/19 2:48 PM EST documented as of this encounter Care Teams Profiling Machine Operator Relationship Specialty Start Date End Date Triston Lundberg MD [address] [place] [address] PCP - General Internal Medicine 04/09/24 Lars Hay Community Health Worker 09/27/23 Deniz Hay RN [address] [place] [address] Animal Breeder 09/27/23 documented as of this encounter
--- OUTSIDE RECORDS SUMMARY | 2024-04-18 14:23 | XMS_ITS | Encounter Summary ---
Author Organization [employer] Address [address] [place] [address] Care Team Providers Care Machine Records Units Supervisor Name Role Phone Lars Hay Unavailable Unavailable Deniz Hay RN Unavailable [phone] Name, Triston MCCLELLAND Primary Care Provider [phone] Encounter Details Date Type Department Care Team (Latest Contact Info) Description 04/16/2024 Travel Social History Tobacco Use Types Packs/Day [...] Description 07/10/2024 3:15 PM EDT Office Visit [facility] MEDICINE [address] [place] [address] Name, MD Triston [address] [place] [address] documented as of this encounter Visit Diagnoses Not on filedocumented in this encounter Additional Health Concerns Assessment Noted Time PHQ-9 Depression Total Score: 8 04/09/19 25 2:48 PM EST documented as of this encounter Care Teams Machine Records Units Supervisor Relationship Specialty Start Date End Date Name, MD Triston [address] [place] [address] PCP - General Internal Medicine 04/09/24 Lars Hay Community Health Worker 09/27/23 Deniz Hay RN [address] [place] [address] Fishing Tackle Repairer 09/27/23 documented as of this encounter
--- OUTSIDE RECORDS SUMMARY | 2024-04-18 14:23 | XMS_ITS | Clinical Summary ---
Author Organization [employer] [facility] ity Address [address] [place] [address] Care Team Providers Care Stunt Person Name Role Phone Unavailable Primary Care Provider [...]
--- OUTSIDE RECORDS SUMMARY | 2024-04-18 14:23 | XMS_ITS | Encounter Summary ---
Author Organization [employer] Address [address] [place] [address] Care Team Providers Care Curb Setter Helper Name Role Phone Lars Hay Unavailable Unavailable Deniz Hay RN Unavailable [phone] Reason for Visit * Reason Comments Pre-visit Planning SDOH negative, Tobac co screening negative. Encounter Details Date Type Department Care Team (Late st Contact Info) Description 03/29/2024 Patient Outreach [facility] [address] [place], [place] [phone] Name, MD Triston [address] [place] [address] Pre-visit Planning (SDOH negative, Tobacco screening negative. ) Social History Tobacco Use Types Packs/Day Years [...] as of this encounter Progress Notes * Domonique Jewell - 03/29/2024 9:47 AM EST CC Domonique Kat placed successful outbound call to patient for pre-visit planning. Patient name and confirmed. Patient confirms appt date and time, and has transportation arrangements. Biggest concern for appointment at this time is no concerns. Appropriate screenings completed in anticipation ofappointment. documented in this encounter Plan of Treatment Upcoming Encounters Date Type Department Care Team ([facility] st Contact Info) Description 07/10/2024 3:15 PM EDT Office Visit [facility] MEDICINE [address] [place] [address] Name, MD Triston [address] [place] [address] documented as of this encounter Visit Diagnoses Not on filedocumented in this encounter Additional Health Concerns Assessment Noted Time PHQ-9 Depression Total Score: 10 024 2:44 PM EDT documented as of this encounter Care Teams Curb Setter Helper Relationship Specialty Start Date End Date Lars Hay Community Health Worker 09/27/23 Deniz Hay RN [address] [place] [address] Restaurant Server 09/27/23 documented as of this encounter
--- OUTSIDE RECORDS SUMMARY | 2024-04-18 14:23 | XMS_ITS | Encounter Summary ---
Author Organization [facility] Address [address] [facility] [address] 7t [place] [address] Care Team Providers Care Hydrogen Operator Name Role Phone Lars Hay Unavailable Unavailable Deniz Hay RN Unavailable [phone] Name, Triston MCCLELLAND Primary Care Provider [phone] Reason for Referral * Consultation (Routine) - Closed Specialty Diagnoses / Procedures Referred By Jannet spears Referred To Contact Genetics Diagnoses Family history of breast cancer in mother Chari Dickson CNM [address] [place] [address] Phone: tel: fax: [address] Phone: tel: fax: Referral ID Status Reason Start Date Expiration Date V isits Requested Visits Authorized [id number] Closed Specialty Services Required 04/17/2024 04/17/2025 1 1 * Imaging (Urgent) - Pending Review Specialty Diagnoses / Procedures Referred By Jannet spears Referred To Contact Radiology Diagnoses Family history of breast cancer in mother Breast cancer screening by mammogram Procedures BI Mammogram Screening Tomosynthesis Bilateral Chari Dickson CNM [address] [place] [address] Phone: tel: fax: [address] Phone: tel: fax: Referral ID Status Reason Start Date Expiration Date V isits Requested Visits Authorized [id number] Pending Review 04/17/2024 04/17/2025 1 1 Reason for Visit * Reason Comments Gynecologic Exam Encounter Details Date Type Department Care Team (Latest Contact Info) Description 04/17/2024 2:45 PM EST Procedure Visit [facility] MEDICINE [address] [place] [address] Chari Dickson CNM [address] [place] [address] Cervical high risk human papillomavirus (HPV) DNA test positive (Primary Dx); Family history of breast cancer in mother; Grief; Family planning counseling; Breast cancer screening by mammogram Social History Tobacco Use Types Packs/Day Years [...] Mass Index 34.02 04/17/2024 3:11 PM EST documented in this encounter Progress Notes * Chari Dickson, FRANK - 04/17/2024 2:45 PM EST Subjective Patient ID: Amparo Esparza is a 38 y.o. female who presents for pap HPV pos, neg 16/18 from 2020. Unable to see pap results. She reports paps are often abnormal. Long Term AMAB partner x 6y, no safety concerns. Not sexually active currently. He is due to be released from retirement in a month. Would like to discuss control options. Previously used NuvaRing and IUD. Gonorrhea/Chlamydia, HIV, syphilis, Hep C neg, Hep B immune 03/2024. Grieving mother's , has been eating more, and having a hard time sleeping. Declines services today, but she will let me or Dr Tamika know if interested in revisiting. Review of Systems Genitourinary: Negative for dyspareunia, dysuria, frequency, genital sores, hematuria, menstrual problem, pelvic pain, urgency, vaginal bleeding, vaginal discharge and vaginal pain. No abnormal bleeding, no breast pain, no breast mass, no nipple discharge Objective BP 130/76 (BP Location: Left arm, Patient Position: Sitting, BP Cuff Size: Large adult) Pulse 60 Temp 97.4 ??F (36.3 ??C) (Temporal) Resp 20 Ht 5' 2 (1.575 m) Wt 186 lb (84.4 kg) LMP 04/01/2024 (Exact Date) SpO2 98% BMI 34.02 kg/m?? Physical Exam Constitutional: Appearance: Normal appearance. Chest: Breasts: Right: Normal. No swelling, bleeding, inverted nipple, mass, nipple discharge, skin change or tenderness. Left: Normal. No swelling, bleeding, inverted nipple, mass, nipple discharge, skin change or tenderness. Genitourinary: General: Normal vulva. Labia: Right: No rash, tenderness, lesion or injury. Left: No rash, tenderness, lesion or injury. Vagina: Normal. No signs of injury and foreign body. No vaginal discharge, erythema, tenderness, bleeding or lesions. Cervix: No cervical motion tenderness, discharge, friability, lesion, erythema, cervical bleeding or eversion. Uterus: Normal. Not enlarged and not tender. Adnexa: Right adnexa normal and left adnexa normal. Right: No mass, tenderness or fullness. Left: No mass, tenderness or fullness. Lymphadenopathy: Upper Body: Right upper body: No supraclavicular or axillary adenopathy. Left upper body: No supraclavicular or axillary adenopathy. Neurological: Mental Status: She is alert. Psychiatric: Mood and Affect: Mood normal. Behavior: Behavior normal. Assessment/Plan Diagnoses and all orders for this visit: Cervical high risk human papillomavirus (HPV) DNA test positive - Pap Smear Cotest today, repeat in 1 year if normal/HPV neg. Will contact with results and plan. Family history of breast cancer in mother - BI Mammogram Screening Tomosynthesis Bilateral; Future - Referral to Genetics; Future Begin screening mammograms now. Discussed genetics referral, which she is interested in. Referral placed. Grief Urged to take time for herself as best she can, stay active. Aware of services. Family planning counseling Reviewed estrogen containing methods contraindicated due to smoking. Does not want a method that causes weight gain. Discussed Nexplanon, IUD and progestin only pill as options. Aware of condoms/EC, declines today. She will consider options and let me know what she would like. Breast cancer screening by mammogram - BI Mammogram Screening Tomosynthesis Bilateral; Future Mother with breast cancer at 46. Begin screening mammograms now. documented in this encounter Plan of Treatment Upcoming Encounters Date Type Department Care Team (Late st Contact Info) Description 07/10/2024 3:15 PM EDT Office Visit [facility] MEDICINE [address] [place] [address] Name, MD Triston [address] [place] [phone] Scheduled Orders Name Type Priority Associated Diagnoses Orde r Schedule Pap Smear Pathology and Cytology Routine Cervical high risk human papillomavirus (HPV) DNA test positive Ordered: 04/17/2024 BI Mammogram Screening Tomosynthesis Bilateral Imaging Urgent Family history of breast cancer in mother Breast cancer screening by mammogram Expected: 04/17/2024, Expires: 06/17/2025 Scheduled Referrals Name Type Priority Associated Diagnoses Orde r Schedule Referral to Genetics Outpatient Referral Routine Family history of breast cancer in mother Expected: 04/17/2024 (Approximate), Expires: 04/17/2025 documented as of this encounter Visit Diagnoses Diagnosis Cervical high risk human papillomavirus (HPV) DNA test positive- Primary Family history of breast cancer in mother Family history of malignant neoplasm of breast Grief Adjustment disorder with depressed mood Family planning counseling Other general counseling and advice for contraceptive management Breast cancer screening by mammogram documented in this encounter Additional Health Concerns Assessment Noted Time PHQ-9 Depression Total Score: 8 04/09/19 25 2:48 PM EST documented as of this encounter Care Teams Hydrogen Operator Relationship Specialty Start Date End Date Name, MD Triston [address] [place] [address] PCP - General Internal Medicine 04/09/24 Lars Hay Community Health Worker 09/27/23 Deniz Hay RN [address] [place] [address] Power Wheelchair Mechanic 09/27/23 documented as of this encounter
--- OUTSIDE RECORDS SUMMARY | 2024-04-18 14:23 | XMS_ITS | Encounter Summary ---
Author Organization [employer] Address [address] [place] [address] Care Team Providers Care Inside Barrel Lathe Operator Name Role Phone Lars Hay Unavailable Unavailable Deniz Hay RN Unavailable [phone] Name, Triston MCCLELLAND Primary Care Provider [phone] Encounter Details Date Type Department Care Team (Late st Contact Info) Description 04/16/2024 Telephone [facility] MEDICINE [address] [place], [place] [phone] Name, MD Triston [address] [place] [address] Social History Tobacco Use Types Packs/Day Years [...] encounter Miscellaneous Notes * Telephone Encounter - Muna Scott RN - 04/16/2024 4:16 PM EST Images from the original note were not included. TC placed to pt to inform of below PCP message. Pt verbalize understanding and denies questions at this time. MD Muna Yan, RN I do not recommend any meds for BP for now documented in this encounter Plan of Treatment Upcoming Encounters Date Type Department Care Team (Late st Contact Info) Description 07/10/2024 3:15 PM EDT Office Visit [facility] MEDICINE [address] [place] [phone] Name, MD Triston [address] [place] [address] documented as of this encounter Visit Diagnoses Not on filedocumented in this encounter Additional Health Concerns Assessment Noted Time PHQ-9 Depression Total Score: 8 04/09/19 2:48 PM EST documented as of this encounter Care Teams Inside Barrel Lathe Operator Relationship Specialty Start Date End Date Triston Lundberg MD [address] [place] [phone] PCP - General Internal Medicine 04/09/24 Lars Hay Community Health Worker 09/27/23 Deniz Hay RN [address] [place] [address] Table Keeper 09/27/23 documented as of this encounter
[2024-04-24 14:36] LABS: HPV Genotype 16 Negative (Negative); HPV Genotype 18 Negative (Negative); HPV High Risk Negative (Negative)
== END 2024-04-17 00:01 | disposition home or self-care (01) ==
LOC: HO.HHCLNP
PROVIDERS: Visit Provider Advanced Practice Midwife
DX: R87.810 Cervical high risk human papillomavirus (HPV) DNA test positive (principal)
CPT/HCPCS: 87626; 88175